=== PATIENT | male | born 1935 | race Caucasian/White ===

== ENCOUNTER 2016-04-03 07:41 | Observation (INO) ==
[2016-04-03] MEDS ORDERED: Ipratropium/Albuterol Neb 3 ML IH ONE ×2 (07:43→11:09)
[2016-04-03] MEDS ORDERED: CefTRIAXone 1,000 MG in D5% in Water (Mini-Bag+) 100 ML IVPB ONE (07:47)
[2016-04-03] MEDS ORDERED: Azithromycin 250 MG TABLET PO ONE (07:47)
--- NOTE | 2016-04-03 08:08 | Emergency Department Note ---
Disposition Clinical Impression: COPD exacerbation Disposition: Admitted As Inpatient Condition: Fair Referrals: Juan Carlos Gutiérrez MD [Primary Care Provider] - Forms: ED Satisfaction Letter Time of Disposition: 11:18 SOB HPI - General Chief Complaint: ED Shortness of Breath/Dyspnea Stated Complaint: shortness of breath and chest pain Time Seen by Provider: 04/03/16 08:05 Source: family Mode of arrival: wheelchair Limitations: no limitations Nursing Notes Reviewed: Yes Vital Signs Reviewed: Yes - History of Present Illness 80-year-old white male with a history of COPD who presents with a 2 week history of increased difficulty breathing and cough productive of yellow sputum. He denies fever. He states his chest is sore, but "it is sore all the time". He denies fever. He has chronic leg edema, he states it is no worse than usual. Pt Subjective Complaint: shortness of breath Onset (ago): week(s) (2) Context: other (History of COPD) Severity: moderate Consistency/Duration: constant Improves with: oxygen, bronchodilators Worsens with: lying flat, exertion, coughing Known history of: COPD Associated symptoms: Reports: cough, sputum production (Yellow) Treatment prior to arrival: oxygen, bronchodilator Cough present: Yes Cough Description: Involuntary, Productive Cough Frequency: Intermittent Sputum production: Yes Sputum Amount: Large Sputum Color: Yellow - Related Data Home oxygen amount: 3 liters Previous Rx's Medication Instructions Recorded Albuterol Neb [Proventil Neb] 2.5 mg IH Q2H PRN #0 inhsol 02/01/16 Albuterol Sulfate [Albuterol 2 puff IH Q4H PRN 365 Days 02/01/16 Inhaler] Budesonide/Formoterol 160/4.5 2 puff IH BIDR inhaler 02/01/16 [Symbicort 160/4.5] Bumetanide [Bumex] 1 mg PO DAILY tablet 02/01/16 Fenofibrate [Tricor] 54 mg PO QAM tablet 02/01/16 Glimepiride [Amaryl] 2 mg PO 0800 tablet 02/01/16 HYDROcodone/Acet 5/325 mg [[place] 1 tab PO BID PRN #0 tablet 02/01/16 5-325 mg] Metolazone [Zaroxolyn] 5 mg PO DAILY tablet 11/10/16 Montelukast [Singulair] 10 mg PO DAILY tablet 02/01/16 Mupirocin [Bactroban Oint] 1 appl TP BID tube 02/01/16 Patient Taking Own Medication 1 each PO DAILY each 02/01/16 Potassium Chloride 10 meq PO DAILY tab.er.prt 02/01/16 Tiotropium [Spiriva] 18 mcg IH DAILY inh 02/01/16 Amoxicillin/Clavulanate [Augmentin] 875 mg PO BIDWM #6 tablet 03/04/16 Cholecalciferol (D-3) [Vitamin D] 2,000 unit PO DAILY #60 tablet 03/04/16 Lactobacillus [Culturelle] 1 each PO BID #6 cap.sprink 03/04/16 Levofloxacin [Levaquin] 500 mg PO DAILY #3 tablet 03/04/16 PredniSONE 20 mg PO BIDWM #6 tablet 03/04/16 Allergies Allergy/AdvReac Type Severity Reaction Status Date / Time niacin Allergy See Verified 11/20/14 14:29 Comments All systems ED: reviewed and negative except as stated. Constitutional: Denies: fever, chills Eyes: Denies: eye discharge ENT ED: Denies: ear pain, throat pain Cardiovascular: Reports: chest pain (He states his chest is sore all the time. He describes it as a soreness, worse with coughing.) Respiratory: Reports: cough, dyspnea, wheezes, sputum production Gastrointestinal: Denies: abdominal pain, nausea, vomiting Genitourinary: Denies: urgency, dysuria Musculoskeletal: Reports: other (Chronic leg edema). Denies: back pain Past Medical History - Past Medical History Medical history: Reports: arthritis, cancer, CHF, COPD, diabetes, hyperlipidemia , hypertension, renal disease, other Surgical history: Reports: cataract, other Psychiatric history: Reports: anxiety, depression - Social History Smoking Status: Former smoker Smokeless Tobacco Status: No Alcohol use: Reports: none Drug use: Reports: none, other Physical Exam - General Limitations: no limitations General appearance: alert, in distress (Mildly dyspneic) - Head Head exam: atraumatic, normocephalic - Eye Eye exam: Present: PERRL, EOMI, conjunctival injection (Mild). Absent: scleral icterus - ENT ENT exam: normal oropharynx, mucous membranes moist, TM's normal bilaterally - Neck Neck exam: Present: normal inspection, full ROM, trachea midline. Absent: lymphadenopathy - Respiratory Respiratory exam: Present: respiratory distress (Mild), wheezes (Moderate, bilateral, expiratory, diffuse), prolonged expiratory phase. Absent: accessory muscle use - Cardiovascular Cardiovascular exam: Present: regular rate, tachycardia (105). Absent: systolic murmur, diastolic murmur, gallop - Abdominal Exam Abdominal exam: Present: soft, Non-Tender, normal bowel sounds, other (Obese). Absent: organomegaly, mass - Extremities Exam Extremities exam: Present: normal capillary refill, pedal edema (2+ minimally pitting edema starting below the knees, includes the ankle and feet.). Absent: calf tenderness - Neurological Exam Neurological exam: Present: alert, oriented X3. Absent: motor sensory deficit - Psychiatric Psychiatric exam: Present: normal affect, normal mood - Skin Skin exam: Present: warm, dry, intact. Absent: cyanosis, diaphoresis Course - Reevaluation(s) Reevaluation #1: Critical troponin of 0.07 called to MD. Will order 2 hour repeat. Time: 08:33 Reevaluation #2: Slightly improved. On exam he still has moderate expiratory wheezing bilaterally. An additional DuoNeb has been ordered. Time: 11:00 Vital Signs Temperature 97.7 F 04/03/16 07:42 Pulse Rate 108 04/03/16 07:42 Respiratory Rate 28 04/03/16 07:42 Blood Pressure 128/99 04/03/16 07:42 O2 Sat by Pulse Oximetry 85 L 04/03/16 07:42 Temperature 97.7 F 04/03/16 07:45 Pulse Rate 93 04/03/16 10:45 Respiratory Rate 18 04/03/16 10:45 Blood Pressure 123/68 04/03/16 10:45 O2 Sat by Pulse Oximetry 94 L 04/03/16 10:45 Oxygen Delivery Oxygen Delivery Nasal Cannula Shortness of Breath/Dyspnea - [facility] Narrative Medical decision making narrative: Clinically he has an exacerbation of his COPD. There is no evidence of pneumonia on his chest x-ray. Clinically he does not have congestive heart failure, and his BNP is not elevated. I have a low index of suspicion for pulmonary embolus. He has improved somewhat with treatment. I discussed the case with the hospitalist, Dr. Landrum. The patient be admitted. - Differential Diagnosis Likely: acute exacerbation of chronic obstructive airways disease, congestive heart failure, pneumonia, asthma with exacerbation, pneumothorax, arrhythmia - Medical Records Medical records reviewed: Yes I reviewed the patient's medical records. Old records reviewed. His last hospital discharge was on 03/02/16. - Lab Data Lab results reviewed: Yes I reviewed the patient's lab results. Result diagrams: 04/03/16 08:03 04/03/16 08:03 Lab Results 04/03/16 04/03/16 04/03/16 Range/Units 08:03 08:03 08:03 WBC 22.5 H (4.3-11.1) K/mcL RBC 3.12 L (4.19-5.50) M/mcL Hgb 9.0 L (12.9-16.9) g/dL Hct 28.5 L (37.5-50.1) % MCV 91.3 (83.0-100.0) fL MCH 28.8 (28.0-33.3) pg MCHC 31.6 (31.6-35.5) g/dL RDW 15.0 H (11.5-14.5) % Plt Count 254 (140-400) K/mcL MPV 8.8 L (9.4-12.4) fL Immature Gran % 4.5 H (0-4) % Seg Neutrophils % 79.7 % Lymphocytes % 7.7 % Monocytes % 7.4 % Eosinophils % 0.4 % Basophils % 0.3 % Neutrophils # 17.9 H (1.6-8.9) K/mcL Lymphocytes # 1.7 (0.6-4.6) K/mcL Monocytes # 1.7 H (0.0-1.3) K/mcL Eosinophils # 0.1 (0.0-0.6) K/mcL Basophils # 0.1 (0.0-0.2) K/mcL PT 12.9 H (9.4-12.1) Seconds INR 1.2 APTT 29.3 (26.0-36.0) Seconds Sodium 135 L (136-145) mEq/L Potassium 3.6 (3.5-4.5) mEq/L Chloride 80 L (98-109) mEq/L Carbon Dioxide 42 H* (19-29) mEq/L BUN 42 H (8-26) mg/dL Creatinine 1.33 H (0.72-1.25) mg/dL Est GFR ( Amer) > 60 (> 60) Est GFR (Non-Af Amer) 52 L (> 60) BUN/Creatinine Ratio 32 H (6-26) Glucose 184 H (70-99) mg/dL Calculated Osmolality 295 (280-300) Calcium 9.9 (8.6-10.8) mg/dL Troponin I (0-0.03) ng/mL B-Natriuretic Peptide (0-100) pg/mL 04/03/16 04/03/16 04/03/16 Range/Units 08:03 08:03 10:05 WBC (4.3-11.1) K/mcL RBC (4.19-5.50) M/mcL Hgb (12.9-16.9) g/dL Hct (37.5-50.1) % MCV (83.0-100.0) fL MCH (28.0-33.3) pg MCHC (31.6-35.5) g/dL RDW (11.5-14.5) % Plt Count (140-400) K/mcL MPV (9.4-12.4) fL Immature Gran % (0-4) % Seg Neutrophils % % Lymphocytes % % Monocytes % % Eosinophils % % Basophils % % Neutrophils # (1.6-8.9) K/mcL Lymphocytes # (0.6-4.6) K/mcL Monocytes # (0.0-1.3) K/mcL Eosinophils # (0.0-0.6) K/mcL Basophils # (0.0-0.2) K/mcL PT (9.4-12.1) Seconds INR APTT (26.0-36.0) Seconds Sodium (136-145) mEq/L Potassium (3.5-4.5) mEq/L Chloride (98-109) mEq/L Carbon Dioxide (19-29) mEq/L BUN (8-26) mg/dL Creatinine (0.72-1.25) mg/dL Est GFR ( Amer) (> 60) Est GFR (Non-Af Amer) (> 60) BUN/Creatinine Ratio (6-26) Glucose (70-99) mg/dL Calculated Osmolality (280-300) Calcium (8.6-10.8) mg/dL Troponin I 0.07 H* 0.07 H* (0-0.03) ng/mL B-Natriuretic Peptide 62 (0-100) pg/mL - Radiology Data Radiology results reviewed: Yes I reviewed the patient's radiology results. ITS Impressions Chest X-Ray 04/03/16 07:43 IMPRESSION: 1. Prominence of the interstitial markings bilaterally, which could be related to a chronic interstitial process or perhaps interstitial edema. 2. Bibasilar atelectasis. D/ / Willis Mullen MD / Willis Mullen MD Interpreting Provider: Willis Mullen MD - EKG Data EKG attestation: Yes I reviewed and interpreted this EKG. EKG results narrative: Sinus tachycardia, rate of 108, occasional supraventricular premature contraction, age undetermined septal infarct, nonspecific ST-T changes. This tracing is compared to a tracing dated 03/01/16, he was in atrial fibrillation on that date, ST T changes are unchanged. Rhythm strip shows sinus tachycardia with rate of 108, IL interval 197 ms, QRS 82 ms with no other ectopy as interpreted by me. Critical Care Time Critical Care Time: Yes Total Critical Care Time: 30 Attestation: Critical care time includes my initial evaluation, reevaluation, consultation with the hospitalist, review of laboratory, EKG, chest x-ray.
[2016-04-03 08:11] LABS: Basophils # 0.1 K/mcL (0.0-0.2); Basophils % 0.3 %; Eosinophils # 0.1 K/mcL (0.0-0.6); Eosinophils % 0.4 %; Hematocrit 28.5 % (37.5-50.1); Immature Granulocytes % 4.5 % (0-4); Lymphocytes # 1.7 K/mcL (0.6-4.6); Lymphocytes % 7.7 %; Mean Corpuscular HGB Conc 31.6 g/dL (31.6-35.5); Mean Corpuscular Hemoglobin 28.8 pg (28.0-33.3); Mean Corpuscular Volume 91.3 fL (83.0-100.0); Mean Platelet Volume 8.8 fL (9.4-12.4); Monocytes # 1.7 K/mcL (0.0-1.3); Monocytes % 7.4 %; Platelet Count 254 K/mcL (140-400); Red Blood Count 3.12 M/mcL (4.19-5.50); Segmented Neutrophils % 79.7 %
[2016-04-03] MEDS ORDERED: Albuterol 2.5 MG/3 ML NEBULIZER IH ONE (08:11)
[2016-04-03 08:12] LABS: Neutrophils # 17.9 K/mcL (1.6-8.9)
[2016-04-03 08:18] LABS: INR 1.2; Prothrombin Time 12.9 Seconds (9.4-12.1)
[2016-04-03 08:21] LABS: Activated Partial Thrombo Time 29.3 Seconds (26.0-36.0)
[2016-04-03 08:26] LABS: BUN/Creatinine Ratio 32 (6-26); Blood Urea Nitrogen 42 mg/dL (8-26); Calcium 9.9 mg/dL (8.6-10.8); Chloride 80 mEq/L (98-109); Glucose 184 mg/dL (70-99); Osmolality,Calculated 295 (280-300); Potassium 3.6 mEq/L (3.5-4.5); Sodium 135 mEq/L (136-145); eGFR For African Americans > 60 (> 60); eGFR For Non-African Americans 52 (> 60)
[2016-04-03 08:27] LABS: Carbon Dioxide 42 mEq/L (19-29)
--- NOTE | 2016-04-03 13:28 | Electrocardiograph Report ---
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
[2016-04-03] MEDS ORDERED: *HR* HYDROcodone/Acet 5/325 mg TABLET PO PRN (15:23)
[2016-04-03] MEDS ORDERED: Naloxone 0.4 MG/ML INJ IVP PRN (15:23)
[2016-04-03] MEDS ORDERED: Ipratropium/Albuterol Neb 3 ML IH SCH (16:00)
[2016-04-03] MEDS: Albuterol 2.5 MG/3 ML NEBULIZER IH PRN (17:26)
[2016-04-03] MEDS: Lactobacillus 1 EACH CAP.SPRINK PO SCH (21:50)
[2016-04-03] MEDS: Budesonide/Formoterol 160/4.5 MDI IH SCH (22:00)
[2016-04-03 23:05] LABS: Acinetobacter baumannii by PCR Not Detected (Not Detect); Candida albicans by PCR Not Detected (Not Detect); Candida glabrata by PCR Not Detected (Not Detect); Candida krusei by PCR Not Detected (Not Detect); Candida parapsilosis by PCR Not Detected (Not Detect); Candida tropicalis by PCR Not Detected (Not Detect); Enterococcus by PCR Not Detected (Not Detect); Escherichia coli by PCR Not Detected (Not Detect); Klebsiella oxytoca by PCR Not Detected (Not Detect); Klebsiella pneumoniae by PCR Not Detected (Not Detect); Pseudomonas aeruginosa by PCR Not Detected (Not Detect); Serratia marcescens by PCR Not Detected (Not Detect); Staphylococcus aureus by PCR Not Detected (Not Detect); Streptococcus agalactiae(B)PCR Not Detected (Not Detect); Streptococcus by PCR ***DETECTED*** (Not Detect); Streptococcus pneumoniae PCR Not Detected (Not Detect); Streptococcus pyogenes (A) PCR Not Detected (Not Detect); blaKPC Carbapenem-Resist Gene Not Detected (Not Detect); mecA Methicillin-Resist Gene Not Detected (Not Detect); vanA/B Vancomycin-Resist Genes Not Detected (Not Detect)
[2016-04-04] MEDS: Albuterol 2.5 MG/3 ML NEBULIZER IH PRN ×5 (04:41→21:22)
[2016-04-04] MEDS: *HR* Enoxaparin 40 MG/0.4 ML SYRINGE SQ SCH (06:40)
[2016-04-04] MEDS: Doxycycline 100 MG in 0.9 % Sodium Chloride Mini Bag 100 ML IVPB SCH ×2 (06:41→17:50)
[2016-04-04] MEDS ORDERED: Cholecalciferol (D-3) 1,000 UNIT TABLET PO SCH ×2 (09:00→11:37)
[2016-04-04] MEDS: *HR* Glimepiride 2 MG TABLET PO SCH (09:34)
[2016-04-04] MEDS: Lactobacillus 1 EACH CAP.SPRINK PO SCH ×2 (09:34→20:45)
[2016-04-04] MEDS: Bumetanide 1 MG TABLET PO SCH (09:34)
[2016-04-04] MEDS: Fenofibrate 54 MG TABLET PO SCH (09:35)
[2016-04-04] MEDS: Tiotropium 18 MCG inhalation IH SCH (09:51)
[2016-04-04] MEDS: Budesonide/Formoterol 160/4.5 MDI IH SCH ×2 (09:54→21:34)
--- NOTE | 2016-04-04 11:28 | Internal Med History&Physical ---
Date of Encounter: 04/04/16 Time of Encounter: 11:05 Assessment and Plan (1) COPD exacerbation Current visit: Yes Status: Acute He has been started on Rocephin and doxycycline. Lactobacillus has also been ordered. His home pulmonary regimen has been reordered. We will recheck labs in a.m. (2) Anemia Current visit: No Status: Chronic Hemoglobin has risen since last admission. Anemia testing done 03/02/2016 showed serum iron 7 and transferrin saturation 3%. We will start on ferrous sulfate with vitamin C. Qualifiers: Anemia type: unspecified type Qualified Code(s): D64.9 - Anemia, unspecified (3) CKD (chronic kidney disease) stage 3, GFR 30-59 ml/min Current visit: No Status: Chronic His creatinine has decreased to 1.3. Estimated GFR 52. Continue present regimen (4) Vitamin D deficiency Current visit: No Status: Chronic Vitamin D level was 10 on 04/03/2015. We will give vitamin D supplement Internal Medicine - H&P: HPI Chief complaint: Dyspnea Admitted From: Home Plans for Post Hospital Care: Home History of present illness: Mr. Alarcon is a 80 year old male who came to emergency complaining of increasing dyspnea over the proceeding 2 weeks. He claims he had a cough productive of green-yellow sputum. He was evaluated in emergency room and felt to have exacerbation of COPD. He was admitted to [facility] floor for ongoing care needs. He was hospitalized approximately 4 weeks ago with similar complaints. He has been hospitalized several times at [facility] in the past few years, most often with exacerbation of COPD. His respiratory history is significant for having smoked from age [age] up to 3 packs per day. He has a diagnosis of COPD/emphysema and wears oxygen at home 14/10. He had chest CT done April 2014 which showed no acute process except for severe emphysema. He states he was diagnosed with sleep apnea several years ago but could not tolerate the CPAP mask. He denies missing any doses of his home medications. Past Med Surg Social Fam HX - Past Medical History Medical history: arthritis, cancer, CHF, COPD, diabetes, hyperlipidemia, hypertension, renal disease, other Psychiatric history: anxiety, depression - Past Surgical History Surgical History: cataract, other - Social History Smoking Status: Former smoker Smokeless Tobacco Status: No Alcohol use: none Drug use: none, other - Family History Son Adopted: No Family Member Ethnicity: Non- Living Status: Still Living Hx Family Cardiac Disorders: Yes Hx Family Respiratory Disorders: No Hx Family Cancer: Yes (Mother Cancer stomach) Hx Family GI Disorders: No Father Adopted: No Living Status: Hx Family Cardiac Disorders: Yes Hx Family Respiratory Disorders: No Hx Family Cancer: Yes (Mother Cancer stomach) Hx Family GI Disorders: No Mother Living Status: Internal Medicine - H&P: Meds Albuterol Sulfate [Albuterol Inhaler] 2 puff IH Q4H PRN 365 Days 02/01/16 [Rx] Budesonide/Formoterol 160/4.5 [Symbicort 160/4.5] 2 puff IH BIDR inhaler [Rx] Bumetanide [Bumex] 1 mg PO DAILY tablet 02/01/16 [Rx] Fenofibrate [Tricor] 54 mg PO QAM tablet 02/01/16 [Rx] Glimepiride [Amaryl] 2 mg PO 0800 tablet 02/01/16 [Rx] HYDROcodone/Acet 5/325 mg [[place] 5-325 mg] 1 tab PO BID PRN #0 tablet 02/01/16 [ Rx] Metolazone [Zaroxolyn] 5 mg PO DAILY tablet 02/01/16 [Rx] Montelukast [Singulair] 10 mg PO DAILY tablet 02/01/16 [Rx] Potassium Chloride 10 meq PO DAILY tab.er.prt 02/01/16 [Rx] Tiotropium [Spiriva] 18 mcg IH DAILY inh 02/01/16 [Rx] Cholecalciferol (D-3) [Vitamin D] 2,000 unit PO DAILY #60 tablet 03/04/16 [Rx] Lactobacillus [Culturelle] 1 each PO BID #6 cap.sprink 03/04/16 [Rx] PredniSONE 20 mg PO BIDWM #6 tablet 03/04/16 [Rx] Allergies niacin Allergy (Verified 11/20/14 14:29) See Comments All Systems PM: A 10-system review of systems was performed and is negative for pertinent findings except as documented above in the HPI. Review of systems: Review of systems from his last visit February 2016 were reviewed and revised as below. Gen.: His weight January 2015 was 220 pounds. Reported weighed this admission is 92.986 kg. Cardiovascular: His cardiovascular history is significant for having hypertension. He had an echocardiogram done during an [facility] stay 04/2014 that showed LVEF of 65-70% with probable mild diastolic dysfunction. Estimated RVSP was 60 mmHg. He has a history of hypertension and heart failure but no known DVT or pulmonary embolus. He had an exercise stress test approximately 2008. He does not remember details but believes it was done at [facility] and showed no abnormality requiring further intervention. He has significant leg edema and wears Matty wraps at home daily on his lower legs. Respiratory: As per history of present illness GI: He has NAFLD and cholelithiasis without cholecystitis. He has diverticulosis. He has had no disorders documented of his liver gallbladder or exocrine pancreas. He thinks he had EGD and colonoscopy done approximately 2004 at [facility] which were both unremarkable. : He has CKD stage 3-[address] Borden. He had prostate cancer in 1998 was treated with radiation therapy and ongoing Lupron injections. His estimated GFR had risen to greater than 60 at time of discharge 11/21/2015. Neurologic: He denies large distribution strokes or seizures. He has significant hearing loss Endocrine: He was diagnosed with DM 2 approximately 2009. His hemoglobin A1c was 6.7% on 08/23/2015. He has hyperlipidemia but no known thyroid disease. Hematology/oncology: He had anemia workup done April 2014 without factor deficiency seen. He is felt to have anemia secondary to chronic disease. He has required intermittent blood transfusions to maintain satisfactory hemoglobin level. He has no other known internal malignancies other than prostate cancer. He has had leukocytosis seen on most blood test within the past year. Psychiatric: He has depression but no significant anxiety or other mental health issues Musk skeletal: He has DJD and chronic low back pain but no known gout - Constitutional Vitals: Temp Pulse Resp BP Pulse Ox 98.4 F 98 18 130/59 96 04/04/16 10:33 04/04/16 10:33 04/04/16 10:33 04/04/16 10:33 04/04/16 10:33 Exam: Gen.: He is a well-developed overweight male who appears in minimal respiratory distress at the present time. He sitting on the edge of the bed. HEENT: Head is atraumatic and normocephalic. Eyes: EOMI. There is no scleral icterus. Mouth: Mucosa is moist. Neck: Supple and nontender. There is no thyromegaly or adenopathy noted. Heart: Regular without murmurs gallops or ectopics. Lungs: No wheezes or crackles are heard. He has diminished breath sounds diffusely. Abdomen: Nontender to palpation. Exam is limited because he is in the seated position. Extremities: There is 2-3+ edema of the dorsum of the feet and lower anterior shins bilaterally. He has chronic venous stasis pigmentation changes and thin skin with chronic steroid use changes of his arms and legs. Neurologic: Mental status: He is talkative and a reliable historian. He is hard of hearing. Cranial nerves: Smile is symmetric. Forehead wrinkles bilaterally. Tongue protrudes midline. EOMI. Motor: There is no pronator drift. Cerebellar: Finger to nose is intact bilaterally. Skin: Warm and dry Internal Med - H&P Results - Labs CBC & Chem 7: 04/03/16 08:03 04/03/16 08:03
[2016-04-04] MEDS: PredniSONE 20 MG TABLET PO SCH (17:50)
[2016-04-05] MEDS: Albuterol 2.5 MG/3 ML NEBULIZER IH PRN ×3 (05:31→11:49)
[2016-04-05 05:37] LABS: Basophils % 0.2 %; Hematocrit 24.1 % (37.5-50.1); Immature Granulocytes % 6.3 % (0-4); Lymphocytes # 1.2 K/mcL (0.6-4.6); Lymphocytes % 5.6 %; Mean Corpuscular HGB Conc 33.2 g/dL (31.6-35.5); Mean Corpuscular Hemoglobin 29.4 pg (28.0-33.3); Mean Corpuscular Volume 88.6 fL (83.0-100.0); Mean Platelet Volume 9.5 fL (9.4-12.4); Monocytes # 1.4 K/mcL (0.0-1.3); Monocytes % 6.8 %; Neutrophils # 16.9 K/mcL (1.6-8.9); Nucleated Red Blood Cells 0.1 /100 WBC (0); Platelet Count 288 K/mcL (140-400); Red Blood Count 2.72 M/mcL (4.19-5.50); Red Cell Distribution Width 14.7 % (11.5-14.5); Segmented Neutrophils % 81.1 %
[2016-04-05 06:00] LABS: BUN/Creatinine Ratio 42 (6-26); Blood Urea Nitrogen 55 mg/dL (8-26); Calcium 9.5 mg/dL (8.6-10.8); Carbon Dioxide 37 mEq/L (19-29); Chloride 85 mEq/L (98-109); Glucose 141 mg/dL (70-99); Osmolality,Calculated 293 (280-300); Potassium 3.9 mEq/L (3.5-4.5); Sodium 133 mEq/L (136-145); eGFR For African Americans > 60 (> 60); eGFR For Non-African Americans 53 (> 60)
[2016-04-05] MEDS: Doxycycline 100 MG in 0.9 % Sodium Chloride Mini Bag 100 ML IVPB SCH (06:14)
[2016-04-05] MEDS: *HR* Enoxaparin 40 MG/0.4 ML SYRINGE SQ SCH (06:15)
[2016-04-05 06:36] LABS: Platelet Estimate Normal (Normal)
[2016-04-05] MEDS: Lactobacillus 1 EACH CAP.SPRINK PO SCH (08:36)
[2016-04-05] MEDS: Fenofibrate 54 MG TABLET PO SCH (08:36)
[2016-04-05] MEDS: Bumetanide 1 MG TABLET PO SCH (08:36)
[2016-04-05] MEDS: *HR* Glimepiride 2 MG TABLET PO SCH (08:36)
[2016-04-05] MEDS: PredniSONE 20 MG TABLET PO SCH (08:36)
[2016-04-05] MEDS: Budesonide/Formoterol 160/4.5 MDI IH SCH ×2 (09:12→09:17)
[2016-04-05] MEDS: Tiotropium 18 MCG inhalation IH SCH (09:12)
[2016-04-05 10:38] VITALS: BP 129/74
--- NOTE | 2016-04-05 10:44 | Discharge Summary ---
Date of Encounter: 04/05/16 Time of Encounter: 10:25 - Discharge Diagnosis (1) COPD exacerbation Priority: Primary Status: Acute (2) Anemia Priority: Secondary Status: Chronic Qualifiers: Anemia type: unspecified type Qualified Code(s): D64.9 - Anemia, unspecified (3) CKD (chronic kidney disease) stage 3, GFR 30-59 ml/min Priority: Secondary Status: Chronic (4) Vitamin D deficiency Priority: Secondary Status: Chronic - Discharge Medications Prescriptions: Cholecalciferol (D-3) [Vitamin D] 2,000 unit PO DAILY #60 tablet Doxycycline 100 mg PO BID #6 capsule Lactobacillus [Culturelle] 1 each PO BID #6 cap.sprink PredniSONE 10 mg PO BIDWM #6 tablet Home Medications: Albuterol Sulfate [Albuterol Inhaler] 2 puff IH Q4H PRN 365 Days 02/01/16 [Rx] Budesonide/Formoterol 160/4.5 [Symbicort 160/4.5] 2 puff IH BIDR inhaler [Rx] Bumetanide [Bumex] 1 mg PO DAILY tablet 02/01/16 [Rx] Fenofibrate [Tricor] 54 mg PO QAM tablet 02/01/16 [Rx] Glimepiride [Amaryl] 2 mg PO 0800 tablet 02/01/16 [Rx] HYDROcodone/Acet 5/325 mg [[place] 5-325 mg] 1 tab PO BID PRN #0 tablet 02/01/16 [ Rx] Metolazone [Zaroxolyn] 5 mg PO DAILY tablet 02/01/16 [Rx] Montelukast [Singulair] 10 mg PO DAILY tablet 02/01/16 [Rx] Potassium Chloride 10 meq PO DAILY tab.er.prt 02/01/16 [Rx] Tiotropium [Spiriva] 18 mcg IH DAILY inh 02/01/16 [Rx] Lactobacillus [Culturelle] 1 each PO BID #6 cap.sprink 03/04/16 [Rx] Cholecalciferol (D-3) [Vitamin D] 2,000 unit PO DAILY #60 tablet 04/05/16 [Rx] Doxycycline 100 mg PO BID #6 capsule 04/05/16 [Rx] Lactobacillus [Culturelle] 1 each PO BID #6 cap.sprink 04/05/16 [Rx] PredniSONE 10 mg PO BIDWM #6 tablet 04/05/16 [Rx] Allergies/Adverse Reactions: Allergies niacin Allergy (Verified 11/20/14 14:29) See Comments Date of admission: 04/03/16 14:00 Primary care physician: Juan Carlos Gutiérrez MD Consults: 04/03/16 15:41 Consult to Director Global Sales [CONS] Routine Reason for SW Consult: discharge planning - Patient Status Disposition: Home Health Service Condition: Fair Overall status at discharge: patient is progressing back to baseline - Discharge Instructions Follow Up With: Juan Carlos Gutiérrez MD [Primary Care Provider] - 1 week - Diet and Activity Activity: resume usual activities as tolerated, wear oxygen at all times Diet: advance to your usual diet Hospital course: Mr. Alarcon is a 80 year old male who came to emergency complaining of increasing dyspnea over the proceeding 2 weeks. He claims he had a cough productive of green-yellow sputum. He was evaluated in emergency room and felt to have exacerbation of COPD. He was admitted to [facility] for ongoing care needs. Initial orders were written by the emergency room physician. I saw him on April 04 and performed the history and physical. He was started on Rocephin and doxycycline. Blood cultures returned showing streptococcus. He will continue doxycycline and lactobacillus for 3 additional days after discharge. He was given Solu-Medrol on admission but I changed this to prednisone. He will continue prednisone for 3 additional days at discharge. His symptoms improved significantly and on April 05 he felt stable for discharge home. He will follow with Dr. Gutiérrez within 1 week. - Time Spent with Patient Total time spent providing and/or coordinating discharge services: - Constitutional Vitals: Temp Pulse Resp BP Pulse Ox 97.4 F L 96 18 129/74 98 04/05/16 10:34 04/05/16 10:34 04/05/16 10:34 04/05/16 10:34 04/05/16 10:34
--- NOTE | 2016-04-05 10:49 | Physician Discharge Referral ---
Home Health/Hosp Referral Info Transfer to: Home Health Attending Provider: Diallo Provider in Charge Post Discharge: PCP (Juan Carlos Gutiérrez M.D.) - Diagnosis (1) COPD exacerbation Priority: Primary Status: Acute (2) Anemia Priority: Secondary Status: Chronic (3) CKD (chronic kidney disease) stage 3, GFR 30-59 ml/min Priority: Secondary Status: Chronic (4) Vitamin D deficiency Priority: Secondary Status: Chronic - Respiratory Orders Oxygen / L per min (Oxygen at 2 L/m by nasal cannula 14/10) Smoking Cessation: Smoking cessation has been advised. For more information, call the [place] Tobacco Quit Line at 8-359-WJTP-NOW. - Diet/Nutrition Diet/Nutrition Orders: No Concentrated Sweets - Activity Activity Orders: Ambulate - Services Needed Following services are medically necessary services: Nursing, Home Health Aide, Physical Therapy, Occupational Therapy - Transfer Medications Prescriptions: Cholecalciferol (D-3) [Vitamin D] 2,000 unit PO DAILY #60 tablet Doxycycline 100 mg PO BID #6 capsule Lactobacillus [Culturelle] 1 each PO BID #6 cap.sprink PredniSONE 10 mg PO BIDWM #6 tablet Home Medications: Albuterol Sulfate [Albuterol Inhaler] 2 puff IH Q4H PRN 365 Days 02/01/16 [Rx] Budesonide/Formoterol 160/4.5 [Symbicort 160/4.5] 2 puff IH BIDR inhaler [Rx] Bumetanide [Bumex] 1 mg PO DAILY tablet 02/01/16 [Rx] Fenofibrate [Tricor] 54 mg PO QAM tablet 02/01/16 [Rx] Glimepiride [Amaryl] 2 mg PO 0800 tablet 02/01/16 [Rx] HYDROcodone/Acet 5/325 mg [Barrington 5-325 mg] 1 tab PO BID PRN #0 tablet 02/01/16 [ Rx] Metolazone [Zaroxolyn] 5 mg PO DAILY tablet 02/01/16 [Rx] Montelukast [Singulair] 10 mg PO DAILY tablet 02/01/16 [Rx] Potassium Chloride 10 meq PO DAILY tab.er.prt 02/01/16 [Rx] Tiotropium [Spiriva] 18 mcg IH DAILY inh 02/01/16 [Rx] Lactobacillus [Culturelle] 1 each PO BID #6 cap.sprink 03/04/16 [Rx] Cholecalciferol (D-3) [Vitamin D] 2,000 unit PO DAILY #60 tablet 04/05/16 [Rx] Doxycycline 100 mg PO BID #6 capsule 04/05/16 [Rx] Lactobacillus [Culturelle] 1 each PO BID #6 cap.sprink 04/05/16 [Rx] PredniSONE 10 mg PO BIDWM #6 tablet 04/05/16 [Rx] Allergies/Adverse Reactions: Allergies niacin Allergy (Verified 11/20/14 14:29) See Comments Certification: Further, I certify that my clinical findings support that this patient is homebound (i.e. absences from home require considerable and taxing effort and are for medical reasons or evangelical services or infrequently or short duration when for other reasons) because: Homebound Reason: Leaving home requires considerable and taxing effort due to condition (Severe COPD) Attestation: My signature below is to certify that this patient is under my care and that I, or nurse practitioner, or a physician's library serials assistant working with me, has a face-to -face encounter with this patient.
== END 2016-04-05 12:25 | disposition home health service (06) ==
LOC: EMEROOPIK 07:41 → INPPIK 07:41
PROVIDERS: ADMIT Internal Medicine; ATTEND Internal Medicine

== ENCOUNTER 2016-04-17 15:51 | Observation (INO) ==
[2016-04-17 16:28] LABS: Basophils % 0.3 %; Eosinophils # 0.1 K/mcL (0.0-0.6); Eosinophils % 0.9 %; Hematocrit 28.5 % (37.5-50.1); Hemoglobin 8.4 g/dL (12.9-16.9); Immature Granulocytes % 1.8 % (0-4); Lymphocytes # 1.4 K/mcL (0.6-4.6); Lymphocytes % 11.1 %; Mean Corpuscular HGB Conc 29.5 g/dL (31.6-35.5); Mean Corpuscular Hemoglobin 29.3 pg (28.0-33.3); Mean Corpuscular Volume 99.3 fL (83.0-100.0); Mean Platelet Volume 9.2 fL (9.4-12.4); Monocytes # 0.7 K/mcL (0.0-1.3); Neutrophils # 10.5 K/mcL (1.6-8.9); Platelet Count 334 K/mcL (140-400); Red Blood Count 2.87 M/mcL (4.19-5.50); Red Cell Distribution Width 15.8 % (11.5-14.5); Segmented Neutrophils % 80.9 %
[2016-04-17 16:28] LABS: ABG PH 7.38 pH Units (7.32-7.45)
[2016-04-17 16:31] LABS: ABG Base Excess 15.9 mEq/L (-2.0 to 3.0); ABG Oxygen Saturation 95 % (95-98); ABG PCO2 70 mmHg (35-45); ABG PO2 80 mmHg (85-104); ABG TCO2 43.2 mEq/L (20-26); Blood Gas FiO2 28 %; Blood Gas Liter Flow 2 L/MIN
[2016-04-17 16:32] LABS: Blood Gas Respiration Rate 20
[2016-04-17 16:52] LABS: BUN/Creatinine Ratio 29 (6-26); Blood Urea Nitrogen 30 mg/dL (8-26); Calcium 9.9 mg/dL (8.6-10.8); Carbon Dioxide 30 mEq/L (19-29); Chloride 93 mEq/L (98-109); Glucose 102 mg/dL (70-99); Osmolality,Calculated 290 (280-300); Potassium 4.7 mEq/L (3.5-4.5); Sodium 137 mEq/L (136-145); eGFR For African Americans > 60 (> 60); eGFR For Non-African Americans > 60 (> 60)
[2016-04-17 16:53] LABS: Acetaminophen < 3.0 mcg/mL (10-30); Salicylate < 5.0 mg/dL (15-30)
--- NOTE | 2016-04-17 17:56 | Emergency Department Note ---
Disposition Clinical Impression: Suicide attempt Benzodiazepine overdose Qualifiers: Encounter type: initial encounter Injury intent: intentional self-harm Qualified Code(s): T42.4X2A - Poisoning by benzodiazepines, intentional self- harm, initial encounter COPD (chronic obstructive pulmonary disease) Qualifiers: COPD type: unspecified COPD Qualified Code(s): J44.9 - Chronic obstructive pulmonary disease, unspecified Disposition: Admitted As Inpatient Condition: Fair General Adult HPI - General Chief complaint: ED Overdose Stated complaint: possible overdose of Ativan Time Seen by Provider: 04/17/16 16:01 Source: patient, family, EMS Mode of arrival: EMS Limitations: altered mental status Nursing Notes Reviewed: Yes Vital Signs Reviewed: Yes - History of Present Illness HPI Narrative: This is an 80-year-old male who has a history of COPD. According to family he was last normal at about noon. When they found him again or evaluated him again about 2:30 PM he was very drowsy. He pounded basically empty Ativan bottle and think he took about 15.5 mg Ativan. They note that he has shown drowsiness since this happened. He does have significant COPD. If those were oxygen all the time. Location the problem is the drowsiness likely related to the extra Ativan that he took Duration: His best we can tell this was onset sometime before 2:30 PM Timing: Apart history Severity: He is somewhat drowsy. As best as can be told he took about 15-16 of the abdomen. Quality: Just the drowsiness Associated signs and symptoms: Other than the drowsiness and associated due to decreased mental status he does not seem to be displaying any other problems Context: He has had some depressed attitude and according to the son has at times threatened to take things in the past but is never made any attempts. Modifying factors: Enough and tried yet Pain Scale: 0 - Related Data Home Medications Medication Instructions Recorded Confirmed Amitriptyline HCl 10 mg PO 04/17/16 Roflumilast [Daliresp] 500 mcg PO 04/17/16 Previous Rx's Medication Instructions Recorded Albuterol Sulfate [Albuterol 2 puff IH Q4H PRN 365 Days 02/01/16 Inhaler] Budesonide/Formoterol 160/4.5 2 puff IH BIDR inhaler 02/01/16 [Symbicort 160/4.5] Bumetanide [Bumex] 1 mg PO DAILY tablet 02/01/16 Glimepiride [Amaryl] 2 mg PO 0800 tablet 02/01/16 Metolazone [Zaroxolyn] 5 mg PO DAILY tablet 02/01/16 Montelukast [Singulair] 10 mg PO DAILY tablet 02/01/16 Potassium Chloride 10 meq PO DAILY tab.er.prt 02/01/16 Tiotropium [Spiriva] 18 mcg IH DAILY inh 02/01/16 Cholecalciferol (D-3) [Vitamin D] 2,000 unit PO DAILY #60 tablet 04/05/16 Lactobacillus [Culturelle] 1 each PO BID #6 cap.sprink 04/05/16 PredniSONE 10 mg PO BIDWM #6 tablet 04/05/16 Allergies Allergy/AdvReac Type Severity Reaction Status Date / Time niacin Allergy See Verified 11/20/14 14:29 Comments Constitutional: Denies: fever Eyes: Denies: eye discharge ENT ED: Denies: congestion Cardiovascular: Reports: other (Unknown as the patient is drowsy) Respiratory: Reports: wheezes (Chronic COPD) Gastrointestinal: Denies: nausea, vomiting Genitourinary: Reports: other (Unknown patients to drowsy) Musculoskeletal: Reports: other (Unknown patients to drowsy) Integumentary: Reports: other (Unknown patients to drowsy) Neurological: Reports: confusion Past Medical History - Past Medical History Source: patient, old records reviewed, obtained from family Medical history: Reports: arthritis, cancer, CHF, COPD, diabetes, hyperlipidemia , hypertension, renal disease, other Surgical history: Reports: cataract, other Psychiatric history: Reports: anxiety, depression - Social History Smoking Status: Former smoker Smokeless Tobacco Status: No Alcohol use: Reports: none Drug use: Reports: none, other Physical Exam - General Limitations: altered mental status General appearance: lethargic - Head Head exam: atraumatic, normocephalic - Eye Eye exam: Present: PERRL. Absent: conjunctival injection - ENT ENT exam: mucous membranes moist - Neck Neck exam: Present: other (No JVD is seen) - Chest Chest inspection: Present: normal inspection - Respiratory Respiratory exam: Present: other (Rhonchi heard bilaterally) - Cardiovascular Cardiovascular exam: Present: regular rate, normal rhythm, normal heart sounds. Absent: JVD - Abdominal Exam Abdominal exam: Present: soft, Non-Tender - Extremities Exam Extremities exam: Absent: pedal edema, calf tenderness - Back Exam Back exam: Absent: CVA tenderness (R), CVA tenderness (L) - Neurological Exam Neurological exam: Present: other (Patient is drowsy and speech is mumbled) - Psychiatric Psychiatric exam: Present: other (Unable to evaluate the patient is to drowsy) - Skin Skin exam: Absent: rash Course - Reevaluation(s) Reevaluation #1: The patient continues to be stable here in the emergency room. He is still drowsy. His current vital signs are pulse of 95 blood pressure 128/91 he is 99 % on 2 L respiratory rate is 18. He has not declined anything in his mental status. I did discuss patient with Dr. Landrum had about 1730 and he did agree to admit the patient for observation until the effects of the medication wear off so that he can be evaluated with respect to his suicidality Time: 18:07 Vital Signs Temperature 97.6 F 04/17/16 15:53 Pulse Rate 89 04/17/16 15:53 Respiratory Rate 15 04/17/16 15:53 Blood Pressure 124/63 04/17/16 15:53 O2 Sat by Pulse Oximetry 99 04/17/16 15:53 Temperature 97.6 F 04/17/16 15:56 Pulse Rate 91 04/17/16 17:11 Respiratory Rate 22 04/17/16 17:11 Blood Pressure 146/82 04/17/16 17:11 O2 Sat by Pulse Oximetry 100 04/17/16 17:11 Oxygen Delivery Oxygen Delivery Nasal Cannula Medical Decision Making - [facility] Narrative Medical decision making narrative: This patient has chronic COPD and is a CO2 retainer but his blood gas appears to be baseline today. He appeared to made a suicide attempt with the Ativan. He is stable at this time but will need further evaluation of the suicidality once effects of the Ativan wore off. Because of the multiple tablets taken not clear what the time to T maximum or the half life of the medication will be. - Lab Data Lab results reviewed: Yes I reviewed the patient's lab results. Result diagrams: 04/17/16 16:22 04/17/16 16:22 Lab Results 04/17/16 04/17/16 04/17/16 Range/Units 16:01 16:22 16:22 WBC 13.0 H (4.3-11.1) K/mcL RBC 2.87 L (4.19-5.50) M/mcL Hgb 8.4 L (12.9-16.9) g/dL Hct 28.5 L (37.5-50.1) % MCV 99.3 D (83.0-100.0) fL MCH 29.3 (28.0-33.3) pg MCHC 29.5 L (31.6-35.5) g/dL RDW 15.8 H (11.5-14.5) % Plt Count 334 (140-400) K/mcL MPV 9.2 L (9.4-12.4) fL Immature Gran % 1.8 (0-4) % Seg Neutrophils % 80.9 % Lymphocytes % 11.1 % Monocytes % 5.0 % Eosinophils % 0.9 % Basophils % 0.3 % Neutrophils # 10.5 H (1.6-8.9) K/mcL Lymphocytes # 1.4 (0.6-4.6) K/mcL Monocytes # 0.7 (0.0-1.3) K/mcL Eosinophils # 0.1 (0.0-0.6) K/mcL Basophils # 0.0 (0.0-0.2) K/mcL ABG pH 7.38 (7.32-7.45) pH Units ABG pCO2 70 H* (35-45) mmHg ABG pO2 80 L (85-104) mmHg ABG HCO3 41.0 H (21-27) mEQ/L ABG Total CO2 43.2 H (20-26) mEq/L ABG O2 Saturation 95 (95-98) % ABG Base Excess 15.9 H (-2.0 to 3.0) mEq/L Respiration Rate 20 Liter Flow 2 L/MIN Blood Gas Modality NC Inspired O2 28 % Sodium 137 (136-145) mEq/L Potassium 4.7 H (3.5-4.5) mEq/L Chloride 93 L (98-109) mEq/L Carbon Dioxide 30 H (19-29) mEq/L BUN 30 H (8-26) mg/dL Creatinine 1.03 (0.72-1.25) mg/dL Est GFR ( Amer) > 60 (> 60) Est GFR (Non-Af Amer) > 60 (> 60) BUN/Creatinine Ratio 29 H (6-26) Glucose 102 H (70-99) mg/dL Calculated Osmolality 290 (280-300) Calcium 9.9 (8.6-10.8) mg/dL Salicylates < 5.0 L (15-30) mg/dL Acetaminophen < 3.0 L (10-30) mcg/mL White count is 13. Hemoglobin is 8.4 which is fairly normal for this patient. Blood gas shows a pH of 7.38 suggesting that the CO2 of 70 is normal for this patient O2 is 80. O2 saturation 95% and this is on 2 L nasal cannula. Chemistry panel is essentially normal. Salicylates and acetaminophen are negative. - Radiology Data Radiology results reviewed: Yes I reviewed the patient's radiology results. Portable chest x-ray read by radiology shows the lungs to be clear. - EKG Data EKG #1 EKG attestation: Yes I reviewed and interpreted this EKG. EKG results narrative: EKG was performed at 1555 and read by me. This shows a normal sinus rhythm with a sinus arrhythmia at a rate of 92. The R wave axis is normal 1 degree. This appeared to be a normal EKG. - Core Measures AMI Core Measures Followed: No Measure Exclusions: not indicated Critical Care Time Critical Care Time: No S.B.A.R. - S.B.A.R. Transition of Care: I did discuss patient with Dr. Landrum at about 1730. He was made aware that the patient has COPD and he is well aware of this and cc patient on a regular basis when he was admitted to the hospital. This problem today is not COPD but his overdose of benzodiazepines. He appears stable. He will be admitted to be observed all the medication wears off. S.B.A.R. Repor Time: 17:30
[2016-04-17] MEDS ORDERED: Naloxone 0.4 MG/ML INJ IVP PRN (18:14)
[2016-04-17] MEDS: Budesonide/Formoterol 160/4.5 MDI IH SCH (22:43)
[2016-04-18] MEDS: *HR* Enoxaparin 40 MG/0.4 ML SYRINGE SQ SCH (06:30)
[2016-04-18] MEDS: Bumetanide 1 MG TABLET PO SCH ×2 (10:17→13:05)
[2016-04-18] MEDS: PredniSONE 10 MG TABLET PO SCH ×2 (10:17→17:13)
[2016-04-18] MEDS: Tiotropium 18 MCG inhalation IH SCH ×2 (10:17→10:44)
[2016-04-18] MEDS: *HR* Glimepiride 2 MG TABLET PO SCH (10:17)
[2016-04-18] MEDS ORDERED: Albuterol 2.5 MG/3 ML NEBULIZER ONE (10:26)
[2016-04-18] MEDS: Albuterol 2.5 MG/3 ML NEBULIZER IH PRN ×4 (10:36→22:30)
[2016-04-18] MEDS: Budesonide/Formoterol 160/4.5 MDI IH SCH ×2 (10:46→22:13)
--- NOTE | 2016-04-18 10:59 | Electrocardiograph Report ---
[facility] Test Date: 2016-04-17 Pat Name: Franklin Alarcon Department: [id number] Room: [facility] Gender: M Device Engineer: [id number] : 1935 Requested By: Carlos Gillette Order Number: [id number] Reading MD: Kodak Garrett MD Measurements Intervals [place] Rate: 92 P: 99 CT: 204 QRS: 1 QRSD: 78 T: 50 QT: 338 QTc: 387 Interpretive Statements SINUS RHYTHM WITH FIRST DEGREE AV BLOCK PACS Electronically Signed On 04-18-16 10:58:18 EST by Kodak Garrett MD
--- NOTE | 2016-04-18 11:26 | Internal Med History&Physical ---
Date of Encounter: 04/18/16 Time of Encounter: 11:00 Assessment and Plan (1) Benzodiazepine overdose Current visit: Yes Status: Acute Qualifiers: Encounter type: initial encounter Injury intent: intentional self-harm Qualified Code(s): T42.4X2A - Poisoning by benzodiazepines, intentional self- harm, initial encounter (2) COPD (chronic obstructive pulmonary disease) Current visit: Yes Status: Acute Mental status is improving. Blood gas showed no significant impairment of ventilation in emergency room. He will be started on antidepressant medication and have restricted access to benzodiazepines at home. Qualifiers: COPD type: unspecified COPD Qualified Code(s): J44.9 - Chronic obstructive pulmonary disease, unspecified (3) Anemia Current visit: No Status: Chronic Iron studies done 03/02/2016 showed iron deficiency. I will start him on ferrous sulfate with vitamin C. Qualifiers: Anemia type: unspecified type Qualified Code(s): D64.9 - Anemia, unspecified (4) DM type 2 (diabetes mellitus, type 2) Current visit: No Status: Chronic Hemoglobin A1c was 6.0% on 03/12/2016. Continue Amaryl and do Accu-Cheks with SSI. 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 Will recheck level in a.m. Internal Medicine - H&P: HPI Chief complaint: Suicide attempt by overdose Admitted From: Home Plans for Post Hospital Care: Home History of present illness: Mr. Alarcon is a 80 year old male who was brought to emergency room after it was noted he had ingested approximately 15 Ativan 0.5 mg pills. His girlfriend who supplies history reports he has more depressed in the last week. He was evaluated in emergency room and admitted to [facility] floor for ongoing care needs. He has a history of depression but is not on antidepressant medication at this time. He uses amitriptyline 10 mg at bedtime for sleep aid. His girlfriend reports he was exhibiting unusual and likely suicidal behavior using a hand gun 6-8 months ago and was stating he would "never go to a skilled nursing but would shoot himself first". All guns were removed from the house after that event. He has not attempted suicide by pill ingestion previously. He has no other mental health diagnoses other than depression. He does not follow with mental health professionals. His girlfriend reports he had 2 brothers that committed suicide by gunshot. Past Med Surg Social Fam HX - Past Medical History Medical history: arthritis, cancer, CHF, COPD, diabetes, hyperlipidemia, hypertension, renal disease, other Psychiatric history: anxiety, depression - Past Surgical History Surgical History: cataract, other - Social History Smoking Status: Former smoker Smokeless Tobacco Status: No Alcohol use: none Drug use: none, other - Family History Son Adopted: No Family Member Ethnicity: Non- Living Status: Still Living Hx Family Cardiac Disorders: Yes Hx Family Respiratory Disorders: No Hx Family Cancer: Yes (Mother Cancer stomach) Hx Family GI Disorders: No Father Adopted: No Living Status: Hx Family Cardiac Disorders: Yes Hx Family Respiratory Disorders: No Hx Family Cancer: Yes (Mother Cancer stomach) Hx Family GI Disorders: No Mother Living Status: Internal Medicine - H&P: Meds Albuterol Sulfate [Albuterol Inhaler] 2 puff IH Q4H PRN 365 Days 02/01/16 [Rx] Budesonide/Formoterol 160/4.5 [Symbicort 160/4.5] 2 puff IH BIDR inhaler [Rx] Bumetanide [Bumex] 1 mg PO DAILY tablet 02/01/16 [Rx] Glimepiride [Amaryl] 2 mg PO 0800 tablet 02/01/16 [Rx] Metolazone [Zaroxolyn] 5 mg PO DAILY tablet 02/01/16 [Rx] Montelukast [Singulair] 10 mg PO DAILY tablet 02/01/16 [Rx] Potassium Chloride 10 meq PO DAILY tab.er.prt 02/01/16 [Rx] Tiotropium [Spiriva] 18 mcg IH DAILY inh 02/01/16 [Rx] Cholecalciferol (D-3) [Vitamin D] 2,000 unit PO DAILY #60 tablet 04/05/16 [Rx] Lactobacillus [Culturelle] 1 each PO BID #6 cap.murrayink 04/05/16 [Rx] PredniSONE 10 mg PO BIDWM #6 tablet 04/05/16 [Rx] Amitriptyline HCl 10 mg PO 04/17/16 [History] Roflumilast [Daliresp] 500 mcg PO 04/17/16 [History] Allergies niacin Allergy (Verified 11/20/14 14:29) See Comments All Systems PM: A 10-system review of systems was performed and is negative for pertinent findings except as documented above in the HPI. Review of systems: Review of systems from his last visit March 2016 were reviewed and revised as below. Gen.: His weight January 2015 was 220 pounds. Reported weighed this admission is 93.123 kg. Cardiovascular: His cardiovascular history is significant for having hypertension. He had an echocardiogram done during an [facility] stay 04/2014 that showed LVEF of 65-70% with probable mild diastolic dysfunction. Estimated RVSP was 60 mmHg. He has a history of hypertension and heart failure but no known DVT or pulmonary embolus. He had an exercise stress test approximately 2008. He does not remember details but believes it was done at [facility] and showed no abnormality requiring further intervention. He has significant leg edema and wears Matty wraps at home daily on his lower legs. Respiratory: His respiratory history is significant for having smoked from age [age] up to 3 packs per day. He has a diagnosis of COPD/emphysema and wears oxygen at home 14/10. He had chest CT done April 2014 which showed no acute process except for severe emphysema. He states he was diagnosed with sleep apnea several years ago but could not tolerate the CPAP mask. He has been hospitalized many times at [facility] in the past 2 years generally with exacerbation of COPD. GI: He has NAFLD and cholelithiasis without cholecystitis. He has diverticulosis. He has had no disorders documented of his liver gallbladder or exocrine pancreas. He thinks he had EGD and colonoscopy done approximately 2004 at [facility] which were both unremarkable. : He has CKD stage 3-[address] Borden. He had prostate cancer in 1998 was treated with radiation therapy and ongoing Lupron injections. His estimated GFR had risen to greater than 60 at time of discharge 11/21/2015. Neurologic: He denies large distribution strokes or seizures. He has significant hearing loss Endocrine: He was diagnosed with DM 2 approximately 2009. His hemoglobin A1c was 6.7% on 08/23/2015. He has hyperlipidemia but no known thyroid disease. Hematology/oncology: He had anemia workup done April 2014 without factor deficiency seen. He is felt to have anemia secondary to chronic disease. He has required intermittent blood transfusions to maintain satisfactory hemoglobin level. He has no other known internal malignancies other than prostate cancer. He has had leukocytosis seen on most blood test within the past year. Psychiatric: As per history of present illness Musk skeletal: He has DJD and chronic low back pain but no known gout - Constitutional Vitals: Temp Pulse Resp BP Pulse Ox 98.9 F 109 18 120/73 97 04/18/16 10:19 04/18/16 10:19 04/18/16 10:46 04/18/16 10:19 04/18/16 10:46 Exam: Gen.: He is a well-developed obese male lying in bed who appears in no severe distress. He is lethargic but does awaken and answers a few questions. HEENT: Head is atraumatic and normocephalic. Eyes: EOMI. There is no scleral icterus. He has conjunctivitis with dried eyelash drainage of his right eye. Mouth: Mucosa is moist. Neck: Supple and nontender. There is no thyromegaly or adenopathy noted. Heart: Irregular. I cannot tell if it is regularly or irregularly irregular. Lungs: He has scattered rhonchi and prolonged expiratory phase. No inspiratory crackles are heard. Breath sounds are symmetric. Abdomen: Soft and nontender. No masses or guarding are noted. Extremities: He has significant desquamation of the skin of his feet. He has ecchymoses in various stages covering most of his arms with thin fragile skin from prolonged steroid use. He has diffuse onychomycosis of his nails. He has 1-2+ edema in the dorsum of the right foot and 1+ edema of the dorsum of the left foot. He has DJD changes of his hands. Neurologic: Mental status: He is awake and able to answer questions but is lethargic. Cranial nerves: Smile is symmetric. Forehead wrinkles bilaterally. Tongue protrudes midline. EOMI. He is hard of hearing. Motor: There is no pronator drift. Cerebellar: Finger to nose is intact bilaterally. Skin: Warm and dry Internal Med - H&P Results - Labs CBC & Chem 7: 04/17/16 16:22 04/17/16 16:22
[2016-04-18] MEDS: Clotrimazole 1% CRM 15 GM TUBE TP SCH ×2 (13:06→20:54)
[2016-04-18] MEDS: Tobramycin/Dex Opth DROPS 2.5 ML BOTTLE RIGHT EYE SCH ×2 (17:14→20:54)
[2016-04-19] MEDS: Tobramycin/Dex Opth DROPS 2.5 ML BOTTLE RIGHT EYE SCH ×2 (02:02→11:33)
[2016-04-19] MEDS: Albuterol 2.5 MG/3 ML NEBULIZER IH PRN ×3 (04:55→17:42)
[2016-04-19] MEDS: *HR* Enoxaparin 40 MG/0.4 ML SYRINGE SQ SCH (05:40)
[2016-04-19] MEDS: Ascorbic Acid 500 MG TABLET PO SCH ×2 (05:40→07:57)
[2016-04-19 07:14] LABS: BUN/Creatinine Ratio 27 (6-26); Blood Urea Nitrogen 28 mg/dL (8-26); Calcium 9.5 mg/dL (8.6-10.8); Carbon Dioxide 36 mEq/L (19-29); Chloride 92 mEq/L (98-109); Glucose 94 mg/dL (70-99); Osmolality,Calculated 295 (280-300); Potassium 3.9 mEq/L (3.5-4.5); Sodium 140 mEq/L (136-145); eGFR For African Americans > 60 (> 60); eGFR For Non-African Americans > 60 (> 60)
[2016-04-19 07:22] LABS: Basophils % 0.3 %; Eosinophils # 0.2 K/mcL (0.0-0.6); Eosinophils % 1.3 %; Hematocrit 25.2 % (37.5-50.1); Hemoglobin 7.9 g/dL (12.9-16.9); Lymphocytes # 1.9 K/mcL (0.6-4.6); Lymphocytes % 16.4 %; Mean Corpuscular HGB Conc 31.3 g/dL (31.6-35.5); Mean Platelet Volume 9.4 fL (9.4-12.4); Monocytes # 0.9 K/mcL (0.0-1.3); Monocytes % 7.3 %; Neutrophils # 8.6 K/mcL (1.6-8.9); Platelet Count 304 K/mcL (140-400); Red Blood Count 2.72 M/mcL (4.19-5.50); Red Cell Distribution Width 15.5 % (11.5-14.5); Segmented Neutrophils % 73.7 %
[2016-04-19] MEDS: Clotrimazole 1% CRM 15 GM TUBE TP SCH (07:57)
[2016-04-19] MEDS: PredniSONE 10 MG TABLET PO SCH ×2 (07:58→16:06)
[2016-04-19] MEDS: Bumetanide 1 MG TABLET PO SCH (07:58)
[2016-04-19] MEDS: *HR* Glimepiride 2 MG TABLET PO SCH (07:58)
[2016-04-19 08:39] LABS: Mean Corpuscular Volume 92.6 fL (83.0-100.0)
[2016-04-19] MEDS: Tiotropium 18 MCG inhalation IH SCH ×2 (08:50→08:51)
[2016-04-19] MEDS: Budesonide/Formoterol 160/4.5 MDI IH SCH (09:05)
[2016-04-19 15:47] VITALS: BP 103/54
--- NOTE | 2016-04-20 08:59 | Discharge Summary ---
Date of Encounter: 04/19/16 Time of Encounter: 15:45 - Discharge Diagnosis (1) Benzodiazepine overdose Priority: Primary Status: Acute Qualifiers: Encounter type: initial encounter Injury intent: intentional self-harm Qualified Code(s): T42.4X2A - Poisoning by benzodiazepines, intentional self- harm, initial encounter (2) COPD (chronic obstructive pulmonary disease) Priority: Secondary Status: Chronic Qualifiers: COPD type: unspecified COPD Qualified Code(s): J44.9 - Chronic obstructive pulmonary disease, unspecified (3) Anemia Priority: Secondary Status: Chronic Qualifiers: Anemia type: unspecified type Qualified Code(s): D64.9 - Anemia, unspecified (4) DM type 2 (diabetes mellitus, type 2) Priority: Secondary Status: Chronic Qualifiers: Diabetes mellitus complication status: with kidney complications Diabetes mellitus complication detail: with chronic kidney disease Diabetes mellitus [facility] insulin use: without [facility] use Chronic kidney disease stage: stage 2 (mild) Qualified Code(s): E11.22 - Type 2 diabetes mellitus with diabetic chronic kidney disease; N18.2 - Chronic kidney disease, stage 2 (mild) (5) Vitamin D deficiency Priority: Secondary Status: Chronic - Discharge Medications Home Medications: Albuterol Sulfate [Albuterol Inhaler] 2 puff IH Q4H PRN 365 Days 02/01/16 [Rx] Budesonide/Formoterol 160/4.5 [Symbicort 160/4.5] 2 puff IH BIDR inhaler [Rx] Bumetanide [Bumex] 1 mg PO DAILY tablet 02/01/16 [Rx] Glimepiride [Amaryl] 2 mg PO 0800 tablet 02/01/16 [Rx] Metolazone [Zaroxolyn] 5 mg PO DAILY tablet 02/01/16 [Rx] Montelukast [Singulair] 10 mg PO DAILY tablet 02/01/16 [Rx] Potassium Chloride 10 meq PO DAILY tab.er.prt 02/01/16 [Rx] Tiotropium [Spiriva] 18 mcg IH DAILY inh 02/01/16 [Rx] Cholecalciferol (D-3) [Vitamin D] 2,000 unit PO DAILY #60 tablet 04/05/16 [Rx] Lactobacillus [Culturelle] 1 each PO BID #6 cap.sprink 04/05/16 [Rx] PredniSONE 10 mg PO BIDWM #6 tablet 04/05/16 [Rx] Amitriptyline HCl 10 mg PO 04/17/16 [History] Roflumilast [Daliresp] 500 mcg PO 04/17/16 [History] Allergies/Adverse Reactions: Allergies niacin Allergy (Verified 11/20/14 14:29) See Comments Date of admission: 04/17/16 17:43 Primary care physician: Juan Carlos Gutiérrez M.D. Consults: 04/19/16 16:22 Consult to Nutrition [CONS] Routine Comment: Consulting Provider: NUTRITION Reason for Dietary Consult: MST Score Consult to [employer] [CONS] Routine Reason for SW Consult: SI - Patient Status Disposition: Transfer Short-Term Hosp Condition: Fair Functional capacity at discharge: uses cane/walker - Discharge Instructions Forms: ED Satisfaction Letter Hospital course: Mr. Alarcon is a 80 year old male who was brought to emergency room after it was noted he had ingested approximately 15 Ativan 0.5 mg pills. His girlfriend who supplies history reports he has been more depressed in the last week. He was evaluated in emergency room and admitted to [facility] floor for ongoing care needs. Initial orders were written by the emergency room physician. I saw him on April 18 and performed the history and physical. His mental status gradually improved as the benzodiazepine effect lessened. He mentioned to staff he still was entertaining depressed and suicidal thoughts. Contact was made with [facility] senior [facility] and the patient was accepted in transfer there. He was discharged the afternoon of April 19. - Time Spent with Patient Total time spent providing and/or coordinating discharge services: - Constitutional Vitals: Temp Pulse Resp BP Pulse Ox 98.4 F 97 26 103/54 92 L 04/19/16 15:45 04/19/16 15:45 04/19/16 17:44 04/19/16 15:45 04/19/16 17:44
== END 2016-04-19 19:17 | disposition short-term general hospital (02) ==
LOC: EMEROOPIK 15:51 → INPPIK 15:51
PROVIDERS: ADMIT Internal Medicine; ATTEND Internal Medicine

== ENCOUNTER 2016-06-12 13:58 | Observation (INO) ==
[2016-06-12] MEDS ORDERED: Albuterol 2.5 MG/3 ML NEBULIZER IH ONE (14:51)
[2016-06-12] MEDS ORDERED: Ipratropium/Albuterol Neb 3 ML IH ONE (14:51)
--- NOTE | 2016-06-12 14:55 | Emergency Department Note ---
Disposition Clinical Impression: COPD exacerbation Disposition: Home, Self-Care Condition: Good Referrals: Juan Carlos Gutiérrez MD [Primary Care Provider] - Forms: ED Satisfaction Letter Time of Disposition: 18:10 SOB HPI - General Chief Complaint: ED Shortness of Breath/Dyspnea Stated Complaint: short of breath Time Seen by Provider: 06/12/16 14:45 Source: patient, family Mode of arrival: wheelchair Limitations: no limitations, physical limitation Nursing Notes Reviewed: Yes Vital Signs Reviewed: Yes - History of Present Illness 80-year-old white male with a four-day history of increased difficulty breathing , increased wheezing, increased cough, and chest discomfort. The chest discomfort is constant, just soreness, worse with coughing and deep breathing. No arm or neck pain. He is chronically short of breath, more so than usual. He wears 4 L of oxygen. He has a history of COPD. He has a history of recurrent anemia requiring blood transfusions. He denies fever. His cough is productive yellow sputum. Pt Subjective Complaint: shortness of breath, cough Onset (ago): day(s) Context: recent illness (4) Severity: moderate Consistency/Duration: constant Improves with: oxygen, rest Worsens with: movement, coughing Known history of: COPD, other (Anemia) Associated symptoms: Reports: chest pain, sputum production. Denies: fever Treatment prior to arrival: oxygen, bronchodilator Cough Description: Involuntary Cough Frequency: Intermittent Sputum production: Yes Sputum Amount: Moderate Sputum Color: Yellow - Related Data Home oxygen amount: 4 liters Home Medications Medication Instructions Recorded Confirmed Amitriptyline HCl 10 mg PO HS 04/17/16 06/12/16 Roflumilast [Daliresp] 500 mcg PO QAM 04/17/16 06/12/16 Previous Rx's Medication Instructions Recorded Albuterol Sulfate [Albuterol 2 puff IH Q4H PRN 365 Days 02/01/16 Inhaler] Budesonide/Formoterol 160/4.5 2 puff IH BIDR inhaler 02/01/16 [Symbicort 160/4.5] Bumetanide [Bumex] 1 mg PO DAILY tablet 02/01/16 Glimepiride [Amaryl] 2 mg PO 0800 tablet 02/01/16 Metolazone [Zaroxolyn] 5 mg PO DAILY tablet 02/01/16 Montelukast [Singulair] 10 mg PO DAILY tablet 02/01/16 Potassium Chloride 10 meq PO DAILY tab.er.prt 02/01/16 Tiotropium [Spiriva] 18 mcg IH DAILY inh 02/01/16 Cholecalciferol (D-3) [Vitamin D] 2,000 unit PO DAILY #60 tablet 04/05/16 Lactobacillus [Culturelle] 1 each PO BID #6 cap.sprink 04/05/16 PredniSONE 10 mg PO BIDWM #6 tablet 04/05/16 Allergies Allergy/AdvReac Type Severity Reaction Status Date / Time niacin Allergy See Verified 06/12/16 13:59 Comments All systems ED: reviewed and negative except as stated. Constitutional: Denies: fever, chills Eyes: Denies: eye discharge ENT ED: Denies: ear pain, throat pain Cardiovascular: Reports: chest pain. Denies: palpitations Respiratory: Reports: cough, dyspnea, wheezes Gastrointestinal: Denies: abdominal pain, nausea, vomiting Musculoskeletal: Denies: back pain Neurological: Reports: weakness. Denies: headache, numbness, paresthesias Past Medical History - Past Medical History Medical history: Reports: arthritis, cancer, CHF, COPD, diabetes, hyperlipidemia , hypertension, renal disease, other Surgical history: Reports: cataract, other Psychiatric history: Reports: anxiety, depression - Social History Smoking Status: Former smoker Smokeless Tobacco Status: No Alcohol use: Reports: none Drug use: Reports: none, other Physical Exam - General Limitations: no limitations, physical limitation General appearance: alert, in no apparent distress - Head Head exam: atraumatic, normocephalic - Eye Eye exam: Present: PERRL, EOMI - ENT ENT exam: normal oropharynx, mucous membranes moist - Neck Neck exam: Present: normal inspection, full ROM. Absent: trachea midline, lymphadenopathy, thyromegaly - Chest Chest inspection: Present: normal inspection, symmetric chest wall rise - Respiratory Respiratory exam: Present: respiratory distress (Mildly dyspneic), wheezes, prolonged expiratory phase (Moderate bilateral expiratory). Absent: accessory muscle use - Cardiovascular Cardiovascular exam: Present: regular rate, normal rhythm, normal heart sounds - Abdominal Exam Abdominal exam: Present: soft, Non-Tender, other (Obese). Absent: organomegaly , mass - Extremities Exam Extremities exam: Present: normal capillary refill, pedal edema, other (2+ nonpitting edema starting below the knees including the ankles and feet.) - Neurological Exam Neurological exam: Present: alert, oriented X3. Absent: motor sensory deficit - Psychiatric Psychiatric exam: Present: normal affect, normal mood - Skin Skin exam: Present: warm, dry, intact. Absent: cyanosis, diaphoresis Course - Reevaluation(s) Reevaluation #1: Slightly improved. Discussed with Dr. Landrum. He will admit to an observation bed. Time: 18:06 Vital Signs Temperature 98.2 F 06/12/16 14:08 Pulse Rate 114 06/12/16 14:08 Respiratory Rate 25 06/12/16 14:08 Blood Pressure 146/96 06/12/16 14:08 O2 Sat by Pulse Oximetry 99 06/12/16 14:08 Temperature 98.2 F 06/12/16 14:10 Pulse Rate 90 06/12/16 17:05 Respiratory Rate 24 06/12/16 17:05 Blood Pressure 126/66 06/12/16 17:05 O2 Sat by Pulse Oximetry 96 06/12/16 17:05 Oxygen Delivery Oxygen Delivery Nasal Cannula Shortness of Breath/Dyspnea - MDM Narrative Medical decision making narrative: Differential includes but is not limited to COPD exacerbation, pneumonia, congestive heart failure, bronchitis with bronchospasm, pulmonary embolus, pleural effusion Patient has COPD exacerbation. No evidence of congestive heart failure. He does have some atelectasis, cannot rule out pneumonia, and he is coughing up some sputum. I am going to go and cover him with Levaquin. He will continue the Solu-Medrol and the nebulizers. I discussed the case with the hospitalist, Dr. Landrum. He will admit. - Lab Data Lab results reviewed: Yes I reviewed the patient's lab results. Result diagrams: 06/12/16 15:05 06/12/16 15:05 Lab Results 06/12/16 06/12/16 06/12/16 Range/Units 15:05 15:05 15:05 WBC 11.9 H (4.3-11.1) K/mcL RBC 2.75 L (4.19-5.50) M/mcL Hgb 8.0 L (12.9-16.9) g/dL Hct 27.1 L (37.5-50.1) % MCV 98.5 (83.0-100.0) fL MCH 29.1 (28.0-33.3) pg MCHC 29.5 L (31.6-35.5) g/dL RDW 14.7 H (11.5-14.5) % Plt Count 291 (140-400) K/mcL MPV 9.0 L (9.4-12.4) fL Immature Gran % 1.6 (0-4) % Seg Neutrophils % 84.1 % Lymphocytes % 7.1 % Monocytes % 6.1 % Eosinophils % 0.8 % Basophils % 0.3 % Neutrophils # 10.0 H (1.6-8.9) K/mcL Lymphocytes # 0.8 (0.6-4.6) K/mcL Monocytes # 0.7 (0.0-1.3) K/mcL Eosinophils # 0.1 (0.0-0.6) K/mcL Basophils # 0.0 (0.0-0.2) K/mcL Nucleated RBCs/100 WBC 0.2 H (0) /100 WBC PT 11.7 (9.4-12.1) Seconds INR 1.1 Sodium 144 (136-145) mEq/L Potassium 4.4 (3.5-4.5) mEq/L Chloride 91 L (98-109) mEq/L Carbon Dioxide 41 H* (19-29) mEq/L BUN 40 H (8-26) mg/dL Creatinine 1.22 (0.72-1.25) mg/dL Est GFR ( Amer) > 60 (> 60) Est GFR (Non-Af Amer) 57 L (> 60) BUN/Creatinine Ratio 33 H (6-26) Glucose 154 H (70-99) mg/dL Calculated Osmolality 311 H (280-300) Calcium 9.9 (8.6-10.8) mg/dL Total Bilirubin 0.2 (0.2-1.2) mg/dL AST 12 (5-34) Units/L ALT 13 (0-55) Units/L Alkaline Phosphatase 38 (38-126) Units/L Troponin I (0-0.03) ng/mL B-Natriuretic Peptide (0-100) pg/mL Serum Total Protein 6.5 (6.0-8.3) g/dL Albumin 3.3 L (3.5-5.0) g/dL Globulin 3.2 (2.4-3.5) g/dL Albumin/Globulin Ratio 1.0 L (1.1-2.2) Blood Type Antibody Screen 06/12/16 06/12/16 06/12/16 Range/Units 15:05 15:05 15:05 WBC (4.3-11.1) K/mcL RBC (4.19-5.50) M/mcL Hgb (12.9-16.9) g/dL Hct (37.5-50.1) % MCV (83.0-100.0) fL MCH (28.0-33.3) pg MCHC (31.6-35.5) g/dL RDW (11.5-14.5) % Plt Count (140-400) K/mcL MPV (9.4-12.4) fL Immature Gran % (0-4) % Seg Neutrophils % % Lymphocytes % % Monocytes % % Eosinophils % % Basophils % % Neutrophils # (1.6-8.9) K/mcL Lymphocytes # (0.6-4.6) K/mcL Monocytes # (0.0-1.3) K/mcL Eosinophils # (0.0-0.6) K/mcL Basophils # (0.0-0.2) K/mcL Nucleated RBCs/100 WBC (0) /100 WBC PT (9.4-12.1) Seconds INR Sodium (136-145) mEq/L Potassium (3.5-4.5) mEq/L Chloride (98-109) mEq/L Carbon Dioxide (19-29) mEq/L BUN (8-26) mg/dL Creatinine (0.72-1.25) mg/dL Est GFR ( Amer) (> 60) Est GFR (Non-Af Amer) (> 60) BUN/Creatinine Ratio (6-26) Glucose (70-99) mg/dL Calculated Osmolality (280-300) Calcium (8.6-10.8) mg/dL Total Bilirubin (0.2-1.2) mg/dL AST (5-34) Units/L ALT (0-55) Units/L Alkaline Phosphatase (38-126) Units/L Troponin I 0.04 H* (0-0.03) ng/mL B-Natriuretic Peptide 50 (0-100) pg/mL Serum Total Protein (6.0-8.3) g/dL Albumin (3.5-5.0) g/dL Globulin (2.4-3.5) g/dL Albumin/Globulin Ratio (1.1-2.2) Blood Type A POSITIVE Antibody Screen NEGATIVE 06/12/16 Range/Units 17:09 WBC (4.3-11.1) K/mcL RBC (4.19-5.50) M/mcL Hgb (12.9-16.9) g/dL Hct (37.5-50.1) % MCV (83.0-100.0) fL MCH (28.0-33.3) pg MCHC (31.6-35.5) g/dL RDW (11.5-14.5) % Plt Count (140-400) K/mcL MPV (9.4-12.4) fL Immature Gran % (0-4) % Seg Neutrophils % % Lymphocytes % % Monocytes % % Eosinophils % % Basophils % % Neutrophils # (1.6-8.9) K/mcL Lymphocytes # (0.6-4.6) K/mcL Monocytes # (0.0-1.3) K/mcL Eosinophils # (0.0-0.6) K/mcL Basophils # (0.0-0.2) K/mcL Nucleated RBCs/100 WBC (0) /100 WBC PT (9.4-12.1) Seconds INR Sodium (136-145) mEq/L Potassium (3.5-4.5) mEq/L Chloride (98-109) mEq/L Carbon Dioxide (19-29) mEq/L BUN (8-26) mg/dL Creatinine (0.72-1.25) mg/dL Est GFR ( Amer) (> 60) Est GFR (Non-Af Amer) (> 60) BUN/Creatinine Ratio (6-26) Glucose (70-99) mg/dL Calculated Osmolality (280-300) Calcium (8.6-10.8) mg/dL Total Bilirubin (0.2-1.2) mg/dL AST (5-34) Units/L ALT (0-55) Units/L Alkaline Phosphatase (38-126) Units/L Troponin I 0.03 (0-0.03) ng/mL B-Natriuretic Peptide (0-100) pg/mL Serum Total Protein (6.0-8.3) g/dL Albumin (3.5-5.0) g/dL Globulin (2.4-3.5) g/dL Albumin/Globulin Ratio (1.1-2.2) Blood Type Antibody Screen - Radiology Data Radiology results reviewed: Yes I reviewed the patient's radiology results. ITS Impressions Chest X-Ray 06/12/16 14:51 IMPRESSION: Bibasilar atelectasis versus pneumonia. D/ / Josse Bridges MD / Jsose Bridges MD Interpreting Provider: Josse Bridges MD - EKG Data EKG attestation: Yes I reviewed and interpreted this EKG. EKG results narrative: On his rhythm with first-degree AV block rate of 91, premature supraventricular contraction, nonspecific ST-T changes, low voltage. Rhythm Shows sinus rhythm with rate of 91, MT interval 222 ms, QRS 60 ms with no other ectopy as interpreted by me. This is compared to a tracing dated 04/17/16, significant change.
[2016-06-12 15:20] LABS: Basophils % 0.3 %; Eosinophils # 0.1 K/mcL (0.0-0.6); Eosinophils % 0.8 %; Hematocrit 27.1 % (37.5-50.1); Immature Granulocytes % 1.6 % (0-4); Lymphocytes # 0.8 K/mcL (0.6-4.6); Lymphocytes % 7.1 %; Mean Corpuscular HGB Conc 29.5 g/dL (31.6-35.5); Mean Corpuscular Hemoglobin 29.1 pg (28.0-33.3); Mean Corpuscular Volume 98.5 fL (83.0-100.0); Monocytes # 0.7 K/mcL (0.0-1.3); Monocytes % 6.1 %; Nucleated Red Blood Cells 0.2 /100 WBC (0); Platelet Count 291 K/mcL (140-400); Red Blood Count 2.75 M/mcL (4.19-5.50); Red Cell Distribution Width 14.7 % (11.5-14.5); Segmented Neutrophils % 84.1 %
[2016-06-12 15:24] LABS: INR 1.1; Prothrombin Time 11.7 Seconds (9.4-12.1)
[2016-06-12 15:34] LABS: Alanine Aminotransferase 13 Units/L (0-55); Albumin 3.3 g/dL (3.5-5.0); Alkaline Phosphatase 38 Units/L (38-126); Aspartate Amino Transferase 12 Units/L (5-34); BUN/Creatinine Ratio 33 (6-26); Bilirubin,Total 0.2 mg/dL (0.2-1.2); Blood Urea Nitrogen 40 mg/dL (8-26); Calcium 9.9 mg/dL (8.6-10.8); Chloride 91 mEq/L (98-109); Globulin 3.2 g/dL (2.4-3.5); Glucose 154 mg/dL (70-99); Osmolality,Calculated 311 (280-300); Potassium 4.4 mEq/L (3.5-4.5); Sodium 144 mEq/L (136-145); Total Protein 6.5 g/dL (6.0-8.3); eGFR For African Americans > 60 (> 60); eGFR For Non-African Americans 57 (> 60)
[2016-06-12 15:38] LABS: Carbon Dioxide 41 mEq/L (19-29)
[2016-06-12] MEDS ORDERED: Levofloxacin 500 MG/100 ML 500 MG/100 ML BAG IVPB ONE ×2 (18:15→19:08)
[2016-06-12] MEDS ORDERED: SODIUM CHLORIDE 0.9% IVPB SCH (19:08)
[2016-06-12] MEDS ORDERED: Naloxone 0.4 MG/ML INJ IVP PRN (19:08)
[2016-06-12] MEDS ORDERED: METHYLPREDNISOLONE IVPB SCH (19:08)
[2016-06-12] MEDS ORDERED: NON-FORMULARY MEDICATION 1 EACH EACH (Roflumilast [Daliresp] 500 MCG) PO SCH (19:30)
[2016-06-12] MEDS: Lactobacillus 1 EACH CAP.SPRINK PO SCH (20:10)
[2016-06-12] MEDS: Ipratropium/Albuterol Neb 3 ML IH SCH ×2 (20:40→20:44)
[2016-06-12] MEDS ORDERED: Budesonide/Formoterol 160/4.5 MDI IH SCH (22:00)
[2016-06-13] MEDS: Ipratropium/Albuterol Neb 3 ML IH SCH ×7 (00:01→23:55)
[2016-06-13] MEDS ORDERED: *HR* Enoxaparin 40 MG/0.4 ML SYRINGE SQ SCH (06:00)
[2016-06-13] MEDS: *HR* Enoxaparin 40 MG/0.4 ML SYRINGE SQ SCH (06:01)
[2016-06-13] MEDS ORDERED: PredniSONE 10 MG TABLET PO SCH (08:00)
[2016-06-13] MEDS: Lactobacillus 1 EACH CAP.SPRINK PO SCH ×2 (08:30→19:46)
[2016-06-13] MEDS: *HR* Glimepiride 2 MG TABLET PO SCH (08:30)
[2016-06-13] MEDS: Cholecalciferol (D-3) 1,000 UNIT TABLET PO SCH (08:31)
[2016-06-13] MEDS ORDERED: Tiotropium 18 MCG inhalation IH SCH (09:00)
[2016-06-13] MEDS ORDERED: Bumetanide 1 MG TABLET PO SCH (09:00)
--- NOTE | 2016-06-13 12:14 | Internal Med History&Physical ---
Date of Encounter: 06/13/16 Time of Encounter: 11:50 Assessment and Plan (1) Acute exacerbation of chronic obstructive airways disease Current visit: No Status: Acute He has been started on Levaquin and Solu-Medrol. His home pulmonary regimen will generally be continued with further workup done as needed (2) Edema Current visit: No Status: Chronic Continue Bumex and compression wrap Qualifiers: Edema type: localized Qualified Code(s): R60.0 - Localized edema (3) DM type 2 (diabetes mellitus, type 2) Current visit: No Status: Chronic Continue glimepiride and do Accu-Cheks with SSI. Qualifiers: Diabetes mellitus complication status: with kidney complications Diabetes mellitus complication detail: with chronic kidney disease Diabetes mellitus salvage determiner insulin use: without group home use Chronic kidney disease stage: stage 2 (mild) Qualified Code(s): E11.22 - Type 2 diabetes mellitus with diabetic chronic kidney disease; N18.2 - Chronic kidney disease, stage 2 (mild) Internal Medicine - H&P: HPI Chief complaint: Dyspnea Admitted From: Home Plans for Post Hospital Care: Home History of present illness: Mr. Alarcon is a 80 year old male who came to emergency complaining of increasing dyspnea over the proceeding week. He claims he had a slight cough productive of yellow sputum earlier today. He was evaluated in emergency room and felt to have exacerbation of COPD. He was admitted to [facility] floor for ongoing care needs. He has been hospitalized many times at [facility] in the past few years, most often with exacerbation of COPD. His respiratory history is significant for having smoked from age [age] up to 3 packs per day. He has a diagnosis of COPD/ emphysema and wears oxygen at home 14/10. He had chest CT done April 2014 which showed no acute process except for severe emphysema. He states he was diagnosed with sleep apnea several years ago but could not tolerate the CPAP mask. He denies missing any doses of his home medications. Past Med Surg Social Fam HX - Past Medical History Medical history: arthritis, cancer, CHF, COPD, diabetes, hyperlipidemia, hypertension, renal disease Psychiatric history: anxiety, depression, prior suicide attempt - Past Surgical History Surgical History: cataract - Social History Smoking Status: Current some day smoker Smokeless Tobacco Status: No Alcohol use: none Drug use: none, other - Family History Son Adopted: No Family Member Ethnicity: Non- Living Status: Still Living Hx Family Cardiac Disorders: Yes Hx Family Respiratory Disorders: No Hx Family Cancer: Yes (Mother Cancer stomach) Hx Family GI Disorders: No Father Adopted: No Living Status: Hx Family Cardiac Disorders: Yes Hx Family Respiratory Disorders: No Hx Family Cancer: Yes (Mother Cancer stomach) Hx Family GI Disorders: No Mother Living Status: Internal Medicine - H&P: Meds Albuterol Sulfate [Albuterol Inhaler] 2 puff IH Q4H PRN 365 Days 02/01/16 [Rx] Bumetanide [Bumex] 1 mg PO DAILY tablet 02/01/16 [Rx] Glimepiride [Amaryl] 2 mg PO 0800 tablet 02/01/16 [Rx] Metolazone [Zaroxolyn] 5 mg PO DAILY tablet 02/01/16 [Rx] Montelukast [Singulair] 10 mg PO DAILY tablet 02/01/16 [Rx] Potassium Chloride 10 meq PO DAILY tab.er.prt 02/01/16 [Rx] Tiotropium [Spiriva] 18 mcg IH DAILY inh 02/01/16 [Rx] Cholecalciferol (D-3) [Vitamin D] 2,000 unit PO DAILY #60 tablet 04/05/16 [Rx] Lactobacillus [Culturelle] 1 each PO BID #6 cap.sprink 04/05/16 [Rx] PredniSONE 10 mg PO BIDWM #6 tablet 04/05/16 [Rx] Amitriptyline HCl 10 mg PO HS 04/17/16 [History] Roflumilast [Daliresp] 500 mcg PO QAM 04/17/16 [History] Allergies niacin Allergy (Verified 06/12/16 13:59) See Comments All Systems PM: A 10-system review of systems was performed and is negative for pertinent findings except as documented above in the HPI. Review of systems: Review of systems from his last visit March 2016 were reviewed and revised as below. Gen.: His weight January 2015 was 220 pounds. Reported weighed this admission is 83.915 kg which is questionable accuracy since admission weight 2 months ago was 92.986 kg. Cardiovascular: His cardiovascular history is significant for having hypertension. He had an echocardiogram done during an [facility] stay 04/2014 that showed LVEF of 65-70% with probable mild diastolic dysfunction. Estimated RVSP was 60 mmHg. He has a history of hypertension and heart failure but no known DVT or pulmonary embolus. He had an exercise stress test approximately 2008. He does not remember details but believes it was done at [facility] and showed no abnormality requiring further intervention. He has significant leg edema and wears Matty wraps at home daily on his lower legs. Respiratory: As per history of present illness GI: He has NAFLD and cholelithiasis without cholecystitis. He has diverticulosis. He has had no disorders documented of his liver gallbladder or exocrine pancreas. He thinks he had EGD and colonoscopy done approximately 2004 at [facility] which were both unremarkable. : He has CKD stage 3-[address] Borden. He had prostate cancer in 1998 was treated with radiation therapy and ongoing Lupron injections. His estimated GFR had risen to greater than 60 at time of discharge 11/21/2015. Neurologic: He denies large distribution strokes or seizures. He has significant hearing loss Endocrine: He was diagnosed with DM 2 approximately 2009. His hemoglobin A1c was 6.0% on 03/12/2016. He has hyperlipidemia but no known thyroid disease. Hematology/oncology: He had anemia workup done February 2016 of possible iron deficiency seen. 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 He has required intermittent blood transfusions to maintain satisfactory hemoglobin level. He has no other known internal malignancies other than prostate cancer. He has had leukocytosis seen on most blood test within the past year. Psychiatric: He has depression but no significant anxiety or other mental health issues. He was hospitalized last at [facility] 2 months ago after a benzodiazepine overdose. He was transferred to [facility] inpatient senior behavioral health service. [place] skeletal: He has DJD and chronic low back pain but no known gout - Constitutional Vitals: Temp Pulse Resp BP Pulse Ox 98.4 F 84 16 118/64 100 06/13/16 10:59 06/13/16 10:59 06/13/16 10:59 06/13/16 10:59 06/13/16 10:59 Exam: General: He is a well-developed well-nourished male sitting on the side of bed who appears dyspneic at rest HEENT: Head is atraumatic and normocephalic. Eyes: EOMI. There is no scleral icterus. Mouth: Mucosa is moist. Neck: Supple and nontender. There is no thyromegaly or adenopathy noted. Heart: Regular without murmurs gallops or ectopics. Lungs: No wheezes or crackles are heard. He has diminished breath sounds diffusely. Abdomen: Soft and nontender. No masses or guarding are noted. Extremities: There is no cyanosis or clubbing noted. He has 2-3+ edema of the dorsum of feet and lower legs bilaterally. Dorsalis pedis and posttibial pulses are not palpable due to the edema. He has erythema of his lower legs and feet bilaterally. He has chronic ecchymoses with skin changes on his arms bilaterally consistent with chronic steroid use Neurologic: Mental status: He is talkative and hard of hearing but seems to be a reliable historian. Cranial nerves: Smile is symmetric. Forehead wrinkles bilaterally. Tongue protrudes midline. EOMI. Motor: There is no pronator drift. Cerebellar: Finger to nose is intact bilaterally. Skin: Warm and dry Internal Med - H&P Results - Labs CBC & Chem 7: 06/12/16 15:05 06/12/16 15:05
[2016-06-13] MEDS ORDERED: Dextrose Gel 15 GM PO PRN ×2 (12:27)
[2016-06-13] MEDS ORDERED: *HR* Dextrose 50 % in Water (Syg) 50 ML SYRINGE IVP PRN (12:27)
[2016-06-13] MEDS: Budesonide/Formoterol 160/4.5 MDI IH SCH ×2 (12:55→20:41)
[2016-06-13] MEDS: PredniSONE 10 MG TABLET PO SCH (16:55)
[2016-06-13] MEDS: Insulin LISPRO 300 UNITS/3 ML VIAL SQ SCH ×2 (16:56→19:47)
--- NOTE | 2016-06-13 17:23 | Electrocardiograph Report ---
[address] [address] Test Date: 2016-06-12 Pat Name: Franklin Alarcon Department: [id number] Room: [facility] Gender: M [employer] Supervisor: [id number] : 1935 Requested By: Josse Zimmerman Order Number: [id number] Reading MD: Kodak Garrett MD Measurements Intervals [place] Rate: 91 P: 62 NH: 222 QRS: -3 QRSD: 60 T: 47 QT: 325 QTc: 374 Interpretive Statements SINUS RHYTHM WITH FIRST DEGREE AV BLOCK WITH OCCASIONAL SUPRAVENTRICULAR PREMATURE COMPLEXES LOW QRS VOLTAGE IN PRECORDIAL LEADS Electronically Signed On 06-13-2016 17:21:14 EDT by Kodak Garrett MD
[2016-06-13] MEDS ORDERED: Levofloxacin 500 MG/100 ML 500 MG/100 ML BAG IVPB SCH (19:08)
[2016-06-14] MEDS: Ipratropium/Albuterol Neb 3 ML IH SCH ×2 (04:24→08:53)
[2016-06-14 05:45] LABS: Basophils % 0.1 %; Eosinophils % 0.1 %; Hemoglobin 6.5 g/dL (12.9-16.9); Immature Granulocytes % 1.6 % (0-4); Lymphocytes # 1.1 K/mcL (0.6-4.6); Lymphocytes % 8.7 %; Mean Corpuscular HGB Conc 29.5 g/dL (31.6-35.5); Mean Corpuscular Hemoglobin 28.6 pg (28.0-33.3); Mean Corpuscular Volume 96.9 fL (83.0-100.0); Mean Platelet Volume 9.6 fL (9.4-12.4); Monocytes # 1.3 K/mcL (0.0-1.3); Monocytes % 10.2 %; Neutrophils # 9.9 K/mcL (1.6-8.9); Nucleated Red Blood Cells 0.2 /100 WBC (0); Platelet Count 296 K/mcL (140-400); Red Blood Count 2.27 M/mcL (4.19-5.50); Red Cell Distribution Width 14.5 % (11.5-14.5); Segmented Neutrophils % 79.3 %
[2016-06-14] MEDS: *HR* Enoxaparin 40 MG/0.4 ML SYRINGE SQ SCH (06:01)
[2016-06-14 06:42] LABS: Calcium 9.1 mg/dL (8.6-10.8); Potassium 4.5 mEq/L (3.5-4.5)
[2016-06-14] MEDS: Insulin LISPRO 300 UNITS/3 ML VIAL SQ SCH ×4 (07:45→22:09)
[2016-06-14] MEDS ORDERED: 0.9 % Sodium Chloride 250 ML ONE (08:18)
[2016-06-14] MEDS: Tiotropium 18 MCG inhalation IH SCH (09:00)
[2016-06-14] MEDS: *HR* Glimepiride 2 MG TABLET PO SCH (09:33)
[2016-06-14] MEDS: PredniSONE 10 MG TABLET PO SCH ×2 (09:40→16:54)
[2016-06-14] MEDS: Bumetanide 1 MG TABLET PO SCH (09:40)
[2016-06-14] MEDS: Lactobacillus 1 EACH CAP.SPRINK PO SCH ×2 (09:41→22:09)
[2016-06-14] MEDS: Cholecalciferol (D-3) 1,000 UNIT TABLET PO SCH (09:41)
--- NOTE | 2016-06-14 11:49 | Internal Med Progress Note ---
Date of Encounter: 06/14/16 Time of Encounter: 11:40 - Assessment and plan (1) Acute exacerbation of chronic obstructive airways disease Current Visit: No Status: Acute Assessment and plan: June 14. Continue present regimen (2) Edema Current Visit: No Status: Chronic Assessment and plan: June 14. Continue present regimen Qualifiers: Edema type: localized Qualified Code(s): R60.0 - Localized edema (3) DM type 2 (diabetes mellitus, type 2) Current Visit: No Status: Chronic Assessment and plan: June 14. Blood sugars are improved. Continue present regimen Qualifiers: Diabetes mellitus complication status: with kidney complications Diabetes mellitus complication detail: with chronic kidney disease Diabetes mellitus care home insulin use: without extermination inspector use Chronic kidney disease stage: stage 2 (mild) Qualified Code(s): E11.22 - Type 2 diabetes mellitus with diabetic chronic kidney disease; N18.2 - Chronic kidney disease, stage 2 (mild) (4) Anemia Current Visit: No Status: Chronic Assessment and plan: June 14. Acute on chronic. He is being transfused 1 unit of RBCs presently. Will recheck CBC in a.m. Qualifiers: Anemia type: unspecified type Qualified Code(s): D64.9 - Anemia, unspecified - Subjective Interval history: June 14. He has no new complaints and feels better overall. - Constitutional Vitals: Temp Pulse Resp BP Pulse Ox 98.5 F 88 26 131/78 100 06/14/16 10:48 06/14/16 10:48 06/14/16 10:48 06/14/16 10:48 06/14/16 10:48 Exam: He is sitting on the side of bed resting comfortably. His lungs show diminished breath sounds with mild expiratory wheezes more on the right than the left in posterior lung no. His legs are wrapped with elastic wrap and showed decreased edema. Reviewed his medications and lab results. Internal Medicine: Result - Labs CBC & Chem 7: 06/14/16 04:30 06/14/16 04:30 Labs: Short CBC 06/14/16 Range/Units 04:30 WBC 12.5 H (4.3-11.1) K/mcL Hgb 6.5 L D (12.9-16.9) g/dL Hct 22.0 L (37.5-50.1) % Plt Count 296 (140-400) K/mcL Neutrophils # 9.9 H (1.6-8.9) K/mcL BMP 06/14/16 04:30 Sodium 142 Potassium 4.5 Chloride 95 L Carbon Dioxide 38 H BUN 60 H D Creatinine 1.41 H Glucose 79 Calcium 9.1 - ABG Interpretation ABG results: PT/INR, D-dimer PT 11.7 Seconds (9.4-12.1) 06/12/16 15:05 Consult Discharge Plan - Plan Referrals: Juan Carlos Gutiérrez MD [Primary Care Provider] - 1 week
[2016-06-14] MEDS ORDERED: Nitroglycerin 0.4 MG TAB.SUBL SL PRN (14:36)
[2016-06-14] MEDS ORDERED: *HR* Morphine 2 MG/ML SYRINGE IVP ONE (14:36)
[2016-06-14] MEDS: Budesonide/Formoterol 160/4.5 MDI IH SCH ×2 (14:40→20:36)
[2016-06-14] MEDS ORDERED: Levofloxacin 500 MG/100 ML 500 MG/100 ML BAG IVPB SCH (19:00)
[2016-06-15 05:38] LABS: Basophils % 0.1 %; Eosinophils # 0.1 K/mcL (0.0-0.6); Eosinophils % 0.6 %; Hematocrit 27.5 % (37.5-50.1); Hemoglobin 8.2 g/dL (12.9-16.9); Immature Granulocytes % 1.9 % (0-4); Lymphocytes # 1.3 K/mcL (0.6-4.6); Lymphocytes % 12.6 %; Mean Corpuscular HGB Conc 29.8 g/dL (31.6-35.5); Mean Corpuscular Hemoglobin 28.5 pg (28.0-33.3); Mean Corpuscular Volume 95.5 fL (83.0-100.0); Mean Platelet Volume 9.7 fL (9.4-12.4); Monocytes % 10.2 %; Neutrophils # 7.5 K/mcL (1.6-8.9); Nucleated Red Blood Cells 0.2 /100 WBC (0); Platelet Count 305 K/mcL (140-400); Red Blood Count 2.88 M/mcL (4.19-5.50); Red Cell Distribution Width 14.6 % (11.5-14.5); Segmented Neutrophils % 74.6 %
[2016-06-15 05:51] LABS: BUN/Creatinine Ratio 47 (6-26); Blood Urea Nitrogen 60 mg/dL (8-26); Calcium 9.7 mg/dL (8.6-10.8); Chloride 92 mEq/L (98-109); Glucose 89 mg/dL (70-99); Osmolality,Calculated 308 (280-300); Potassium 4.7 mEq/L (3.5-4.5); Sodium 141 mEq/L (136-145); eGFR For African Americans > 60 (> 60); eGFR For Non-African Americans 54 (> 60)
[2016-06-15 06:02] LABS: Carbon Dioxide 40 mEq/L (19-29)
[2016-06-15] MEDS: Insulin LISPRO 300 UNITS/3 ML VIAL SQ SCH ×4 (07:51→19:51)
[2016-06-15] MEDS: Bumetanide 1 MG TABLET PO SCH (08:59)
[2016-06-15] MEDS: Cholecalciferol (D-3) 1,000 UNIT TABLET PO SCH (09:00)
[2016-06-15] MEDS: Lactobacillus 1 EACH CAP.SPRINK PO SCH ×2 (09:00→19:51)
[2016-06-15] MEDS: *HR* Glimepiride 2 MG TABLET PO SCH ×2 (09:00→09:04)
[2016-06-15] MEDS: PredniSONE 10 MG TABLET PO SCH ×2 (09:00→17:08)
[2016-06-15] MEDS: Tiotropium 18 MCG inhalation IH SCH (10:21)
[2016-06-15] MEDS: Albuterol 2.5 MG/3 ML NEBULIZER IH PRN ×3 (10:21→21:14)
--- NOTE | 2016-06-15 16:13 | Internal Med Progress Note ---
Date of Encounter: 06/15/16 Time of Encounter: 16:00 - Assessment and plan (1) Acute exacerbation of chronic obstructive airways disease Current Visit: No Status: Acute Assessment and plan: June 14. Continue present regimen June 15. We will add Robitussin DM (2) Edema Current Visit: No Status: Chronic Assessment and plan: June 14. Continue present regimen June 15. Continue Bumex 1.5 mg daily Qualifiers: Edema type: localized Qualified Code(s): R60.0 - Localized edema (3) DM type 2 (diabetes mellitus, type 2) Current Visit: No Status: Chronic Assessment and plan: June 14. Blood sugars are improved. Continue present regimen June 15. Blood sugars are acceptable. Continue present regimen Qualifiers: Diabetes mellitus complication status: with kidney complications Diabetes mellitus complication detail: with chronic kidney disease Diabetes mellitus oil heaterman insulin use: without oil heaterman use Chronic kidney disease stage: stage 2 (mild) Qualified Code(s): E11.22 - Type 2 diabetes mellitus with diabetic chronic kidney disease; N18.2 - Chronic kidney disease, stage 2 (mild) (4) Anemia Current Visit: No Status: Chronic Assessment and plan: June 14. Acute on chronic. He is being transfused 1 unit of RBCs presently. Will recheck CBC in a.m. June 15. Hemoglobin has risen to 8.2 posttransfusion. Qualifiers: Anemia type: unspecified type Qualified Code(s): D64.9 - Anemia, unspecified - Subjective Interval history: June 14. He has no new complaints and feels better overall. June 15. He complains of dyspnea - Constitutional Vitals: Temp Pulse Resp BP Pulse Ox 97.9 F 76 16 137/68 99 06/15/16 14:48 06/15/16 14:48 06/15/16 14:48 06/15/16 14:48 06/15/16 14:48 Exam: He is sitting on the side of the bed in minimal respiratory distress. He has slightly prolonged expiratory phase and wheezing posteriorly more on the right than the left. Extremities show elastic wrap in place on his lower legs and feet. Edema is not significantly changed. I reviewed his medications and lab results. Internal Medicine: Result - Labs CBC & Chem 7: 06/15/16 04:38 06/15/16 04:38 Labs: Short CBC 06/15/16 Range/Units 04:38 WBC 10.1 (4.3-11.1) K/mcL Hgb 8.2 L D (12.9-16.9) g/dL Hct 27.5 L (37.5-50.1) % Plt Count 305 (140-400) K/mcL Neutrophils # 7.5 (1.6-8.9) K/mcL BMP 06/15/16 04:38 Sodium 141 Potassium 4.7 H Chloride 92 L Carbon Dioxide 40 H* BUN 60 H Creatinine 1.29 H Glucose 89 Calcium 9.7 - ABG Interpretation ABG results: PT/INR, D-dimer PT 11.7 Seconds (9.4-12.1) 06/12/16 15:05 Consult Discharge Plan - Plan Referrals: Juan Carlos Gutiérrez MD [Primary Care Provider] - 1 week
[2016-06-15] MEDS ORDERED: Levofloxacin 250 MG/50 ML 250 MG/50 ML BAG IVPB SCH (19:00)
[2016-06-15] MEDS: Budesonide/Formoterol 160/4.5 MDI IH SCH (21:17)
[2016-06-16] MEDS: Albuterol 2.5 MG/3 ML NEBULIZER IH PRN ×2 (00:56→07:20)
[2016-06-16] MEDS: Budesonide/Formoterol 160/4.5 MDI IH SCH (07:21)
[2016-06-16] MEDS: *HR* Glimepiride 2 MG TABLET PO SCH (08:04)
[2016-06-16] MEDS: Lactobacillus 1 EACH CAP.SPRINK PO SCH (08:04)
[2016-06-16] MEDS: Cholecalciferol (D-3) 1,000 UNIT TABLET PO SCH (08:04)
[2016-06-16] MEDS: PredniSONE 10 MG TABLET PO SCH (08:05)
[2016-06-16] MEDS: Bumetanide 1 MG TABLET PO SCH (08:05)
[2016-06-16] MEDS: Insulin LISPRO 300 UNITS/3 ML VIAL SQ SCH (08:10)
[2016-06-16 08:32] VITALS: BP 151/73
--- NOTE | 2016-06-16 09:48 | Discharge Summary ---
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 Priority: Primary Status: Acute (2) Edema Priority: Secondary Status: Chronic Qualifiers: Edema type: localized Qualified Code(s): R60.0 - Localized edema (3) DM type 2 (diabetes mellitus, type 2) Priority: Secondary Status: Chronic Qualifiers: Diabetes mellitus complication status: with kidney complications Diabetes mellitus complication detail: with chronic kidney disease Diabetes mellitus adjunct faculty for medical terminology insulin use: without adjunct faculty for medical terminology use Chronic kidney disease stage: stage 2 (mild) Qualified Code(s): E11.22 - Type 2 diabetes mellitus with diabetic chronic kidney disease; N18.2 - Chronic kidney disease, stage 2 (mild) (4) Anemia Priority: Secondary Status: Chronic Qualifiers: Anemia type: unspecified type Qualified Code(s): D64.9 - Anemia, unspecified - Discharge Medications Prescriptions: Lactobacillus [Culturelle] 1 each PO BID #6 cap.sprink Levofloxacin [Levaquin] 500 mg PO DAILY #3 tablet Home Medications: Albuterol Sulfate [Albuterol Inhaler] 2 puff IH Q4H PRN 365 Days 02/01/16 [Rx] Bumetanide [Bumex] 1 mg PO DAILY tablet 02/01/16 [Rx] Glimepiride [Amaryl] 2 mg PO 0800 tablet 02/01/16 [Rx] Metolazone [Zaroxolyn] 5 mg PO DAILY tablet 02/01/16 [Rx] Montelukast [Singulair] 10 mg PO DAILY tablet 02/01/16 [Rx] Potassium Chloride 10 meq PO DAILY tab.er.prt 02/01/16 [Rx] Tiotropium [Spiriva] 18 mcg IH DAILY inh 02/01/16 [Rx] Cholecalciferol (D-3) [Vitamin D] 2,000 unit PO DAILY #60 tablet 04/05/16 [Rx] PredniSONE 10 mg PO BIDWM #6 tablet 04/05/16 [Rx] Amitriptyline HCl 10 mg PO HS 04/17/16 [History] Roflumilast [Daliresp] 500 mcg PO QAM 04/17/16 [History] Lactobacillus [Culturelle] 1 each PO BID #6 cap.sprink 06/16/16 [Rx] Levofloxacin [Levaquin] 500 mg PO DAILY #3 tablet 06/16/16 [Rx] Allergies/Adverse Reactions: Allergies niacin Allergy (Verified 06/12/16 13:59) See Comments Date of admission: 06/12/16 18:35 Primary care physician: Juan Carlos Gutiérrez MD Consults: 06/12/16 21:43 Consult to Contract Administrator [CONS] Routine Reason for SW Consult: D/C planning - coordination of care - Patient Status Disposition: Home, Self-Care Condition: Good Overall status at discharge: patient is progressing back to baseline - Discharge Instructions Follow Up With: Juan Carlos Gutiérrez MD [Primary Care Provider] - 1 week - Diet and Activity Activity: resume usual activities as tolerated, wear oxygen at all times Diet: diabetic diet Hospital course: Mr. Alarcon is a 80 year old male who came to emergency complaining of increasing dyspnea over the proceeding week. He claims he had a slight cough productive of yellow sputum earlier today. He was evaluated in emergency room and felt to have exacerbation of COPD. He was admitted to [facility] for ongoing care needs. Initial orders were written by the emergency room physician. I saw him on June 13 and performed a history and physical. He was started on IV Levaquin and Solu-Medrol. He had gradual improvement in his dyspnea over the course of hospital stay. When I saw him on June 16 he felt significantly improved and stable for discharge home which I felt was reasonable. He will follow with his PCP Dr. Gutiérrez within 1 week. He will continue with Levaquin and probiotic for 3 additional days at discharge along with his home pulmonary regimen as before. Bumex was increased to 1.5 mg [place] during his hospital stay and elastic wraps for continued on his lower legs. He had good diuresis. He will return to his home dose of Bumex at discharge. - Time Spent with Patient Total time spent providing and/or coordinating discharge services: - Constitutional Vitals: Temp Pulse Resp BP Pulse Ox 98.4 F 92 20 151/73 97 06/16/16 07:06 06/16/16 07:06 06/16/16 07:20 06/16/16 07:06 06/16/16 07:20
[2016-06-16] MEDS: Tiotropium 18 MCG inhalation IH SCH (10:45)
== END 2016-06-16 11:00 | disposition home or self-care (01) ==
LOC: EMEROOPIK 13:58 → INPPIK 13:58
PROVIDERS: ADMIT Internal Medicine; ATTEND Internal Medicine

== ENCOUNTER 2016-06-19 18:04 | Inpatient (IN) ==
--- NOTE | 2016-06-19 18:29 | Emergency Department Note ---
Disposition Clinical Impression: Acute exacerbation of chronic obstructive airways disease CHF (congestive heart failure) Qualifiers: Congestive heart failure type: unspecified congestive heart failure type Congestive heart failure chronicity: chronic Qualified Code(s): I50.9 - Heart failure, unspecified Disposition: Admitted As Inpatient Condition: Fair Referrals: NO,PCP [Primary Care Provider] - Forms: ED Satisfaction Letter SOB HPI - General Chief Complaint: ED Shortness of Breath/Dyspnea Stated Complaint: BONNIE Time Seen by Provider: 06/19/16 18:17 Source: patient, family Limitations: physical limitation Nursing Notes Reviewed: Yes Vital Signs Reviewed: Yes - History of Present Illness Patient presents to the ED complaining of worsening shortness of breath since being discharged from the hospital on the . He was hospitalized from - with exacerbation of COPD and CHF. He was treated with Levaquin, and increased dose of Bumex and Solu-Medrol. States he took his last antibiotic today but is still feeling bad. He reports chest congestion and tightness. No rhinorrhea or sore throat. No cough. He reports nausea but no vomiting. He has chronic constipation. Last bowel movement was yesterday. No urinary symptoms. States he has chronic lower extremity edema that is slightly worse than usual. States he did feel like he was ready to be discharged when he left. He is on 4 L of oxygen at home for over 15 years. - Related Data Home Medications Medication Instructions Recorded Confirmed Amitriptyline HCl 10 mg PO HS 04/17/16 06/12/16 Roflumilast [Daliresp] 500 mcg PO QAM 04/17/16 06/12/16 Previous Rx's Medication Instructions Recorded Albuterol Sulfate [Albuterol 2 puff IH Q4H PRN 365 Days 02/01/16 Inhaler] Bumetanide [Bumex] 1 mg PO DAILY tablet 02/01/16 Glimepiride [Amaryl] 2 mg PO 0800 tablet 02/01/16 Metolazone [Zaroxolyn] 5 mg PO DAILY tablet 02/01/16 Montelukast [Singulair] 10 mg PO DAILY tablet 02/01/16 Potassium Chloride 10 meq PO DAILY tab.er.prt 02/01/16 Tiotropium [Spiriva] 18 mcg IH DAILY inh 02/01/16 Cholecalciferol (D-3) [Vitamin D] 2,000 unit PO DAILY #60 tablet 04/05/16 PredniSONE 10 mg PO BIDWM #6 tablet 04/05/16 Lactobacillus [Culturelle] 1 each PO BID #6 cap.sprink 06/16/16 Levofloxacin [Levaquin] 500 mg PO DAILY #3 tablet 06/16/16 Allergies Allergy/AdvReac Type Severity Reaction Status Date / Time niacin Allergy See Verified 06/12/16 13:59 Comments Constitutional: Denies: fever, chills, weakness, weight change Eyes: Denies: eye pain, eye discharge, vision change ENT ED: Denies: ear pain, throat pain, dental pain, hearing loss, epistaxis, congestion, dysphagia Cardiovascular: Reports: edema. Denies: chest pain, palpitations, dyspnea on exertion, syncope Respiratory: Reports: dyspnea. Denies: cough, wheezes, hemoptysis, stridor Gastrointestinal: Reports: nausea. Denies: abdominal pain, vomiting, diarrhea, constipation, hematemesis, melena, hematochezia Genitourinary: Denies: urgency, dysuria, frequency, hematuria Musculoskeletal: Denies: back pain, neck pain, arthralgia, myalgia Integumentary: Denies: rash, abrasion, lesions Neurological: Denies: headache, weakness, numbness, paresthesias, confusion, abnormal gait, vertigo Psychiatric: Denies: anxiety, depression, suicidal thoughts, homicidal thoughts , auditory hallucinations, visual hallucinations Endocrine: Denies: fatigue Hematological/Lymphatic: Denies: easy bleeding, easy bruising Allergic/Immunologic: Denies: facial swelling, urticaria Past Medical History - Past Medical History Medical history: Reports: arthritis, cancer, CHF, COPD, diabetes, hyperlipidemia , hypertension, renal disease Surgical history: Reports: cataract Psychiatric history: Reports: anxiety, depression, prior suicide attempt - Social History Smoking Status: Current some day smoker Smokeless Tobacco Status: No Alcohol use: Reports: none Drug use: Reports: none, other Physical Exam - General Limitations: physical limitation General appearance: alert, in no apparent distress - Head Head exam: atraumatic, normocephalic, normal inspection - Eye Eye exam: Present: normal appearance, PERRL, EOMI - ENT ENT exam: normal exam, normal oropharynx, mucous membranes moist - Neck Neck exam: Present: normal inspection, full ROM, trachea midline - Chest Chest inspection: Present: normal inspection, symmetric chest wall rise - Respiratory Respiratory exam: Absent: respiratory distress - Expanded Respiratory Exam Location: wheezes: Left, Right, Upper, Lower (scattered), decreased breath sounds: Lower, Upper, Right, Left - Cardiovascular Cardiovascular exam: Present: regular rate, normal rhythm, normal heart sounds - Abdominal Exam Abdominal exam: Present: soft, Non-Tender. Absent: tenderness, distention, guarding, rebound, rigidity - Extremities Exam Extremities exam: Present: normal inspection, full ROM, pedal edema (1-2+ pitting bilaterally to knees). Absent: tenderness Course Course Narrative: Patient presents to the ED with worsening shortness of breath and edema since being discharged 3 days ago. He has some scattered wheezing and diminished breath sounds. Oxygen saturation is normal 4 L around 90. Family states he has been dipping down into the 70s with any level of exertion. He has significant pitting lower extremity edema. He was given a nebulizer treatment while labs and imaging were obtained. Chest x-ray shows no pneumonia. Laboratory studies show chronic anemia. His CO2 is slightly higher than usual on his ABG although he is a known chronic retainer. Troponin is slightly elevated and I feel this represents a strain as his EKG does not show any ischemic changes. I do feel like he would benefit from admission which he agrees with. Will contact the hospitalist on-call. - Reevaluation(s) Reevaluation #1: I have spoken to the hospitalist adjunct physical education instructor, Dr. Landrum, who has accepted the patient. Vital Signs Temperature 98.2 F 06/19/16 18:08 Pulse Rate 91 06/19/16 18:08 Respiratory Rate 28 06/19/16 18:08 Blood Pressure 161/84 06/19/16 18:08 O2 Sat by Pulse Oximetry 91 L 06/19/16 18:08 Temperature 98.2 F 06/19/16 18:08 Pulse Rate 94 06/19/16 19:23 Respiratory Rate 22 06/19/16 19:23 Blood Pressure 140/66 06/19/16 19:23 O2 Sat by Pulse Oximetry 92 L 06/19/16 19:23 Oxygen Delivery Oxygen Delivery Nasal Cannula Shortness of Breath/Dyspnea - Differential Diagnosis Likely: acute exacerbation of chronic obstructive airways disease, congestive heart failure, pneumonia - Medical Records Medical records reviewed: Yes I reviewed the patient's medical records. - Lab Data Lab results reviewed: Yes I reviewed the patient's lab results. Result diagrams: 06/19/16 18:39 06/19/16 18:39 Lab Results 06/19/16 06/19/16 06/19/16 Range/Units 18:39 18:39 18:39 WBC 8.0 (4.3-11.1) K/mcL RBC 2.62 L (4.19-5.50) M/mcL Hgb 7.6 L (12.9-16.9) g/dL Hct 24.9 L (37.5-50.1) % MCV 95.0 (83.0-100.0) fL MCH 29.0 (28.0-33.3) pg MCHC 30.5 L (31.6-35.5) g/dL RDW 14.2 (11.5-14.5) % Plt Count 220 (140-400) K/mcL MPV 9.2 L (9.4-12.4) fL Immature Gran % 1.4 (0-4) % Seg Neutrophils % 87.2 % Lymphocytes % 4.4 % Monocytes % 6.9 % Eosinophils % 0.0 % Basophils % 0.1 % Neutrophils # 7.0 (1.6-8.9) K/mcL Lymphocytes # 0.4 L (0.6-4.6) K/mcL Monocytes # 0.6 (0.0-1.3) K/mcL Eosinophils # 0.0 (0.0-0.6) K/mcL Basophils # 0.0 (0.0-0.2) K/mcL Nucleated RBCs/100 WBC 0.4 H (0) /100 WBC PT 13.1 H (9.4-12.1) Seconds INR 1.2 APTT 29.7 (26.0-36.0) Seconds ABG pH (7.32-7.45) pH Units ABG pCO2 (35-45) mmHg ABG pO2 (85-104) mmHg ABG HCO3 (21-27) mEQ/L ABG Total CO2 (20-26) mEq/L ABG O2 Saturation (95-98) % ABG Base Excess (-2.0 to 3.0) mEq/L Liter Flow L/MIN Blood Gas Modality Inspired O2 % Sodium 136 (136-145) mEq/L Potassium 4.4 (3.5-4.5) mEq/L Chloride 81 L (98-109) mEq/L Carbon Dioxide 40 H* (19-29) mEq/L BUN 59 H (8-26) mg/dL Creatinine 1.58 H (0.72-1.25) mg/dL Est GFR ( Amer) 51 L (> 60) Est GFR (Non-Af Amer) 42 L (> 60) BUN/Creatinine Ratio 37 H (6-26) Glucose 149 H (70-99) mg/dL Calculated Osmolality 301 H (280-300) Calcium 8.6 (8.6-10.8) mg/dL Troponin I (0-0.03) ng/mL B-Natriuretic Peptide (0-100) pg/mL Blood Type 06/19/16 06/19/16 06/19/16 Range/Units 18:39 18:39 18:39 WBC (4.3-11.1) K/mcL RBC (4.19-5.50) M/mcL Hgb (12.9-16.9) g/dL Hct (37.5-50.1) % MCV (83.0-100.0) fL MCH (28.0-33.3) pg MCHC (31.6-35.5) g/dL RDW (11.5-14.5) % Plt Count (140-400) K/mcL MPV (9.4-12.4) fL Immature Gran % (0-4) % Seg Neutrophils % % Lymphocytes % % Monocytes % % Eosinophils % % Basophils % % Neutrophils # (1.6-8.9) K/mcL Lymphocytes # (0.6-4.6) K/mcL Monocytes # (0.0-1.3) K/mcL Eosinophils # (0.0-0.6) K/mcL Basophils # (0.0-0.2) K/mcL Nucleated RBCs/100 WBC (0) /100 WBC PT (9.4-12.1) Seconds INR APTT (26.0-36.0) Seconds ABG pH (7.32-7.45) pH Units ABG pCO2 (35-45) mmHg ABG pO2 (85-104) mmHg ABG HCO3 (21-27) mEQ/L ABG Total CO2 (20-26) mEq/L ABG O2 Saturation (95-98) % ABG Base Excess (-2.0 to 3.0) mEq/L Liter Flow L/MIN Blood Gas Modality Inspired O2 % Sodium (136-145) mEq/L Potassium (3.5-4.5) mEq/L Chloride (98-109) mEq/L Carbon Dioxide (19-29) mEq/L BUN (8-26) mg/dL Creatinine (0.72-1.25) mg/dL Est GFR ( Amer) (> 60) Est GFR (Non-Af Amer) (> 60) BUN/Creatinine Ratio (6-26) Glucose (70-99) mg/dL Calculated Osmolality (280-300) Calcium (8.6-10.8) mg/dL Troponin I 0.05 H* (0-0.03) ng/mL B-Natriuretic Peptide 49 (0-100) pg/mL Blood Type A POSITIVE 06/19/16 Range/Units 18:49 WBC (4.3-11.1) K/mcL RBC (4.19-5.50) M/mcL Hgb (12.9-16.9) g/dL Hct (37.5-50.1) % MCV (83.0-100.0) fL MCH (28.0-33.3) pg MCHC (31.6-35.5) g/dL RDW (11.5-14.5) % Plt Count (140-400) K/mcL MPV (9.4-12.4) fL Immature Gran % (0-4) % Seg Neutrophils % % Lymphocytes % % Monocytes % % Eosinophils % % Basophils % % Neutrophils # (1.6-8.9) K/mcL Lymphocytes # (0.6-4.6) K/mcL Monocytes # (0.0-1.3) K/mcL Eosinophils # (0.0-0.6) K/mcL Basophils # (0.0-0.2) K/mcL Nucleated RBCs/100 WBC (0) /100 WBC PT (9.4-12.1) Seconds INR APTT (26.0-36.0) Seconds ABG pH 7.38 (7.32-7.45) pH Units ABG pCO2 75 H* (35-45) mmHg ABG pO2 53 L (85-104) mmHg ABG HCO3 44.8 H (21-27) mEQ/L ABG Total CO2 47.1 H (20-26) mEq/L ABG O2 Saturation 84 L (95-98) % ABG Base Excess 19.7 H (-2.0 to 3.0) mEq/L Liter Flow 4 L/MIN Blood Gas Modality [place] Inspired O2 36 % Sodium (136-145) mEq/L Potassium (3.5-4.5) mEq/L Chloride (98-109) mEq/L Carbon Dioxide (19-29) mEq/L BUN (8-26) mg/dL Creatinine (0.72-1.25) mg/dL Est GFR ( Amer) (> 60) Est GFR (Non-Af Amer) (> 60) BUN/Creatinine Ratio (6-26) Glucose (70-99) mg/dL Calculated Osmolality (280-300) Calcium (8.6-10.8) mg/dL Troponin I (0-0.03) ng/mL B-Natriuretic Peptide (0-100) pg/mL Blood Type - Radiology Data Radiology results reviewed: Yes I reviewed the patient's radiology results. - EKG Data EKG attestation: Yes I reviewed and interpreted this EKG. EKG results narrative: ITS Impressions Chest X-Ray 06/19/16 18:34 IMPRESSION: Mild bibasilar opacities, which may represent atelectasis or small infiltrates. Emphysematous change. D/ / 06/19/2016 18:54:17 Darryn Elizabeth MD / adelita Interpreting Provider: Darryn Elizabeth MD EKG shows normal: Reports: sinus rhythm Rate: Reports: normal Rhythm: Reports: NSR [place]/QRS: Reports: normal Heart block present: Reports: 1st Degree When compared to previous EKG there are: no significant changes Interpretation: Reports: no acute changes, unchanged when compared to prior tracing (date) (06/12/16)
[2016-06-19] MEDS ORDERED: Ipratropium/Albuterol Neb 3 ML IH ONE ×2 (18:34)
[2016-06-19 18:52] LABS: Basophils % 0.1 %; Hematocrit 24.9 % (37.5-50.1); Hemoglobin 7.6 g/dL (12.9-16.9); Immature Granulocytes % 1.4 % (0-4); Lymphocytes # 0.4 K/mcL (0.6-4.6); Lymphocytes % 4.4 %; Mean Corpuscular HGB Conc 30.5 g/dL (31.6-35.5); Mean Platelet Volume 9.2 fL (9.4-12.4); Monocytes # 0.6 K/mcL (0.0-1.3); Monocytes % 6.9 %; Nucleated Red Blood Cells 0.4 /100 WBC (0); Platelet Count 220 K/mcL (140-400); Red Blood Count 2.62 M/mcL (4.19-5.50); Red Cell Distribution Width 14.2 % (11.5-14.5); Segmented Neutrophils % 87.2 %
[2016-06-19 18:58] LABS: INR 1.2; Prothrombin Time 13.1 Seconds (9.4-12.1)
[2016-06-19 19:01] LABS: Activated Partial Thrombo Time 29.7 Seconds (26.0-36.0)
[2016-06-19 19:05] LABS: ABG PH 7.38 pH Units (7.32-7.45)
[2016-06-19 19:06] LABS: ABG HCO3 44.8 mEQ/L (21-27); ABG PCO2 75 mmHg (35-45); ABG PO2 53 mmHg (85-104)
[2016-06-19 19:07] LABS: ABG Base Excess 19.7 mEq/L (-2.0 to 3.0); ABG Oxygen Saturation 84 % (95-98); ABG TCO2 47.1 mEq/L (20-26); Blood Gas FiO2 36 %; Blood Gas Liter Flow 4 L/MIN
[2016-06-19 19:07] LABS: Calcium 8.6 mg/dL (8.6-10.8); Potassium 4.4 mEq/L (3.5-4.5)
[2016-06-19] MEDS: Ondansetron 4 MG/2 ML VIAL IVP STA (20:08)
[2016-06-19] MEDS ORDERED: Naloxone 0.4 MG/ML INJ IVP PRN ×2 (20:15→20:50)
[2016-06-19] MEDS: Albuterol 2.5 MG/3 ML NEBULIZER IH PRN (22:57)
[2016-06-20] MEDS: Albuterol 2.5 MG/3 ML NEBULIZER IH PRN ×5 (02:08→20:41)
[2016-06-20] MEDS: *HR* Glimepiride 2 MG TABLET PO SCH (06:06)
[2016-06-20] MEDS: (Roflumilast [Daliresp] 500 MCG) PO SCH (08:20)
[2016-06-20] MEDS: Cholecalciferol (D-3) 1,000 UNIT TABLET PO SCH (08:48)
[2016-06-20] MEDS ORDERED: Bumetanide 1 MG TABLET PO SCH (09:00)
[2016-06-20] MEDS: Tiotropium 18 MCG inhalation IH SCH (09:12)
--- NOTE | 2016-06-20 11:07 | Internal Med History&Physical ---
Date of Encounter: 06/20/16 Time of Encounter: 10:45 Assessment and Plan (1) Acute exacerbation of chronic obstructive airways disease Current visit: Yes Status: Acute He was given Solu-Medrol in emergency room. WBC was normal in emergency room although left shift was noted. We will recheck labs in a.m. (2) Anemia Current visit: No Status: Chronic We will recheck labs in a.m. Anemia testing done 03/02/2016 showed iron deficiency. Qualifiers: Anemia type: unspecified type Qualified Code(s): D64.9 - Anemia, unspecified (3) CHF (congestive heart failure) Current visit: Yes Status: Chronic Continue Bumex. Will add isosorbide. Qualifiers: Congestive heart failure type: diastolic Congestive heart failure chronicity: chronic Qualified Code(s): I50.32 - Chronic diastolic (congestive ) heart failure Internal Medicine - H&P: HPI Chief complaint: Dyspnea and epistaxis Admitted From: Home Plans for Post Hospital Care: Home History of present illness: Mr. Alarcon is a 80 year old male who came to emergency room stating he had developed epistaxis and increasing dyspnea. He had been discharged from [facility] June 16 following admission June 12 for exacerbation of COPD. He took the antibiotic and probiotics at home as prescribed for 3 days after discharge. His last dose was taken a few hours prior to coming to emergency room last evening. He was evaluated and felt to have exacerbation of COPD and was admitted to [facility] floor for ongoing care needs. He has been hospitalized many times at [facility] in the past few years, most often with exacerbation of COPD. His respiratory history is significant for having smoked from age [age] up to 3 packs per day. He has a diagnosis of COPD/ emphysema and wears oxygen at home 14/10. He had chest CT 08/23/2015 which showed no acute process except for severe emphysema. He states he was diagnosed with sleep apnea several years ago but could not tolerate the CPAP mask. He denies missing any doses of his home medications. He states he has used occasional aspirin for chest pain. He has had epistaxis in the past. Past Med Surg Social Fam HX - Past Medical History Medical history: arthritis, cancer, CHF, COPD, diabetes, hyperlipidemia, hypertension, renal disease Psychiatric history: anxiety, depression, prior suicide attempt - Past Surgical History Surgical History: cataract - Social History Smoking Status: Current some day smoker Smokeless Tobacco Status: No Alcohol use: none Drug use: none, other - Family History Son Adopted: No Family Member Ethnicity: Non- Living Status: Still Living Hx Family Cardiac Disorders: Yes Hx Family Respiratory Disorders: No Hx Family Cancer: Yes (Mother Cancer stomach) Hx Family GI Disorders: No Father Adopted: No Living Status: Hx Family Cardiac Disorders: Yes Hx Family Respiratory Disorders: No Hx Family Cancer: Yes (Mother Cancer stomach) Hx Family GI Disorders: No Mother Living Status: Age at : 78 Cause of : cancer Hx Family Cancer: Yes Internal Medicine - H&P: Meds Albuterol Sulfate [Albuterol Inhaler] 2 puff IH Q4H PRN 365 Days 02/01/16 [Rx] Bumetanide [Bumex] 1 mg PO DAILY tablet 02/01/16 [Rx] Glimepiride [Amaryl] 2 mg PO 0800 tablet 02/01/16 [Rx] Metolazone [Zaroxolyn] 5 mg PO DAILY tablet 02/01/16 [Rx] Montelukast [Singulair] 10 mg PO DAILY tablet 02/01/16 [Rx] Potassium Chloride 10 meq PO DAILY tab.er.prt 02/01/16 [Rx] Tiotropium [Spiriva] 18 mcg IH DAILY inh 02/01/16 [Rx] Cholecalciferol (D-3) [Vitamin D] 2,000 unit PO DAILY #60 tablet 04/05/16 [Rx] PredniSONE 10 mg PO BIDWM #6 tablet 04/05/16 [Rx] Amitriptyline HCl 10 mg PO HS 04/17/16 [History] Roflumilast [Daliresp] 500 mcg PO QAM 04/17/16 [History] Lactobacillus [Culturelle] 1 each PO BID #6 cap.sprink 06/16/16 [Rx] Levofloxacin [Levaquin] 500 mg PO DAILY #3 tablet 06/16/16 [Rx] Allergies niacin Allergy (Verified 06/12/16 13:59) See Comments All Systems PM: A 10-system review of systems was performed and is negative for pertinent findings except as documented above in the HPI. Review of systems: Review of systems from his last visit in May 2016 were reviewed and revised as below. Gen.: His weight January 2015 was 220 pounds. Reported weighed this admission is 93.894 kg. Cardiovascular: His cardiovascular history is significant for having hypertension. He had an echocardiogram done during an [facility] stay 04/2014 that showed LVEF of 65-70% with probable mild diastolic dysfunction. Estimated RVSP was 60 mmHg. He has a history of hypertension and heart failure but no known DVT or pulmonary embolus. He had an exercise stress test approximately 2008. He does not remember details but believes it was done at [facility] and showed no abnormality requiring further intervention. He has significant leg edema and wears Matty wraps at home daily on his lower legs. Respiratory: As per history of present illness GI: He has NAFLD and cholelithiasis without cholecystitis. He has diverticulosis. He has had no disorders documented of his liver gallbladder or exocrine pancreas. He thinks he had EGD and colonoscopy done approximately 2004 at [facility] which were both unremarkable. : He has CKD stage 3-[address] Borden. He had prostate cancer in 1998 was treated with radiation therapy and ongoing Lupron injections. His estimated GFR had risen to greater than 60 at time of discharge 11/21/2015. Neurologic: He denies large distribution strokes or seizures. He has significant hearing loss Endocrine: He was diagnosed with DM 2 approximately 2009. His hemoglobin A1c was 6.0% on 03/12/2016. He has hyperlipidemia but no known thyroid disease. Hematology/oncology: He had anemia workup done February 2016 revealing possible iron deficiency. He is also felt to have anemia secondary to chronic disease. He has required intermittent blood transfusions to maintain satisfactory hemoglobin level. He has no other known internal malignancies other than prostate cancer. Psychiatric: He has depression but no significant anxiety or other mental health issues. He was hospitalized at [facility] March 2016 after a benzodiazepine overdose. He was transferred to [facility] inpatient senior behavioral health service. Musk skeletal: He has DJD and chronic low back pain but no known gout - Constitutional Vitals: Temp Pulse Resp BP Pulse Ox 98.5 F 88 22 107/60 92 L 06/20/16 07:19 06/20/16 07:19 06/20/16 09:12 06/20/16 07:19 06/20/16 09:12 Exam: Gen.: He is a well-developed well-nourished male sitting on the side of the bed who appears slightly dyspneic HEENT: Head is atraumatic, normocephalic. Eyes: EOMI. There is no scleral icterus. Mouth: Mucosa is moist. Neck: Supple and nontender. There is no thyromegaly or adenopathy noted. Heart: Regular without murmurs gallops or ectopics. Tones are soft. Lungs: No wheezes or crackles are heard. He has diminished breath sounds diffusely. Abdomen: Soft and nontender. Exam is limited because he is in the seated position. Extremities: He has elastic wrap on his lower legs and feet bilaterally. I did not remove these. He has 1-2+ pitting edema of the dorsum of the feet noted through the elastic wrap. He has ecchymoses of various stages involving essentially the entire skin of his arms. Neurologic: Mental status: He is talkative and seems to be a fair historian. He is significantly hard of hearing. Cranial nerves: Smile is symmetric. Forehead wrinkles bilaterally. Tongue protrudes midline. EOMI. Motor: There is no pronator drift. Cerebellar: Finger to nose is intact bilaterally. Skin: Warm and dry with ecchymoses as per above Internal Med - H&P Results - Labs CBC & Chem 7: 06/19/16 18:39 06/19/16 18:39 - VTE Reasons for not Prescribing Prophylaxis: Treatment not Indicated - Low risk for VTE Documentation of Mechanical Device: Graduated compression elastic hosiery
[2016-06-20] MEDS: Isosorbide MONOnitrate (24 HR) 30 MG TAB.ER.24H PO SCH (11:55)
[2016-06-20] MEDS: Budesonide/Formoterol 160/4.5 MDI IH SCH ×2 (11:56→20:41)
--- NOTE | 2016-06-20 17:00 | Electrocardiograph Report ---
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
[2016-06-21] MEDS: Albuterol 2.5 MG/3 ML NEBULIZER IH PRN ×3 (02:11→17:15)
[2016-06-21] MEDS ORDERED: Furosemide 20 MG/2 ML VIAL IVP STA (02:24)
[2016-06-21] MEDS ORDERED: *HR* Morphine 2 MG/ML SYRINGE IVP STA (02:25)
[2016-06-21 06:46] LABS: Eosinophils % 0.1 %; Hematocrit 23.3 % (37.5-50.1); Hemoglobin 7.1 g/dL (12.9-16.9); Immature Granulocytes % 1.4 % (0-4); Lymphocytes # 1.4 K/mcL (0.6-4.6); Lymphocytes % 18.6 %; Mean Corpuscular HGB Conc 30.5 g/dL (31.6-35.5); Mean Corpuscular Hemoglobin 29.1 pg (28.0-33.3); Mean Corpuscular Volume 95.5 fL (83.0-100.0); Mean Platelet Volume 8.8 fL (9.4-12.4); Monocytes # 1.1 K/mcL (0.0-1.3); Monocytes % 14.7 %; Platelet Count 227 K/mcL (140-400); Red Blood Count 2.44 M/mcL (4.19-5.50); Red Cell Distribution Width 14.2 % (11.5-14.5); Segmented Neutrophils % 65.2 %
[2016-06-21 07:07] LABS: Albumin 2.6 g/dL (3.5-5.0); Bilirubin,Total 0.2 mg/dL (0.2-1.2); Calcium 8.5 mg/dL (8.6-10.8); Globulin 2.6 g/dL (2.4-3.5); Potassium 3.7 mEq/L (3.5-4.5); Total Protein 5.2 g/dL (6.0-8.3)
[2016-06-21] MEDS ORDERED: *HR* Dextrose 50 % in Water (Syg) 50 ML SYRINGE ONE (07:15)
[2016-06-21] MEDS ORDERED: D5% in Water 1,000 ML IVC PRN (07:34)
[2016-06-21] MEDS ORDERED: Dextrose Gel 15 GM PO PRN ×2 (07:34)
[2016-06-21] MEDS: Bumetanide 1 MG/4 ML VIAL IVP SCH (08:45)
[2016-06-21] MEDS: *HR* Glimepiride 2 MG TABLET PO SCH (08:54)
[2016-06-21] MEDS: *HR* Dextrose 50 % in Water (Syg) 50 ML SYRINGE IVP PRN ×2 (09:43→17:02)
--- NOTE | 2016-06-21 09:53 | Internal Med Progress Note ---
Date of Encounter: 06/21/16 Time of Encounter: 09:40 - Assessment and plan (1) Acute exacerbation of chronic obstructive airways disease Current Visit: Yes Status: Acute Assessment and plan: June 21. Continue present management. WBC remains normal and there is no left shift on the differential. He maintains afebrile. Will not give antibiotics at this time (2) Anemia Current Visit: No Status: Chronic Assessment and plan: Hemoglobin has decreased to 7.1. We will recheck CBC in a.m. Qualifiers: Anemia type: unspecified type Qualified Code(s): D64.9 - Anemia, unspecified (3) CHF (congestive heart failure) Current Visit: Yes Status: Chronic Assessment and plan: June 21. Bn peptide was 49 on admission. Continue present management. Qualifiers: Congestive heart failure type: diastolic Congestive heart failure chronicity: chronic Qualified Code(s): I50.32 - Chronic diastolic (congestive ) heart failure - Subjective Interval history: June 21. He has no new complaints. He has had hypoglycemia in the past few hours. Amaryl was given June 20 but not given today. - Constitutional Vitals: Temp Pulse Resp BP Pulse Ox 98.7 F 91 28 145/54 93 L 06/21/16 07:47 06/21/16 07:47 06/21/16 07:59 06/21/16 07:47 06/21/16 07:59 Exam: He is lying in bed and appears to be resting fairly comfortably. He is wearing oxygen by mask. Heart is regular without murmurs. Lungs show prolonged expiratory phase and mild wheezing. His lower legs are wrapped with elastic wrap but edema appears to be minimal above the top of the wrap. I reviewed his medications and lab results Internal Medicine: Result - Labs CBC & Chem 7: 06/21/16 06:40 06/21/16 06:40 Labs: Short CBC 06/21/16 Range/Units 06:40 WBC 7.7 (4.3-11.1) K/mcL Hgb 7.1 L (12.9-16.9) g/dL Hct 23.3 L (37.5-50.1) % Plt Count 227 (140-400) K/mcL Neutrophils # 5.0 (1.6-8.9) K/mcL BMP 06/21/16 06:40 Sodium 139 Potassium 3.7 Chloride 84 L Carbon Dioxide 43 H* BUN 57 H Creatinine 1.40 H Glucose 36 L* Calcium 8.5 L Liver Function 06/21/16 Range/Units 06:40 Total Bilirubin 0.2 (0.2-1.2) mg/dL AST 49 H (5-34) Units/L ALT 16 (0-55) Units/L Alkaline Phosphatase 32 L (38-126) Units/L Albumin 2.6 L (3.5-5.0) g/dL - ABG Interpretation ABG results: ABG ABG pH 7.38 pH Units (7.32-7.45) 06/19/16 18:49 ABG pCO2 75 mmHg (35-45) H* 06/19/16 18:49 ABG pO2 53 mmHg (85-104) L 06/19/16 18:49 ABG O2 Saturation 84 % (95-98) L 06/19/16 18:49 PT/INR, D-dimer PT 13.1 Seconds (9.4-12.1) H 06/19/16 18:39 - VTE Reasons for not Prescribing Prophylaxis: Treatment not Indicated - Low risk for VTE Documentation of Mechanical Device: Graduated compression elastic hosiery Consult Discharge Plan - Plan Referrals: NO,PCP [Primary Care Provider] - 1 week
[2016-06-21] MEDS: Isosorbide MONOnitrate (24 HR) 30 MG TAB.ER.24H PO SCH (09:59)
[2016-06-21] MEDS: Cholecalciferol (D-3) 1,000 UNIT TABLET PO SCH (10:03)
[2016-06-21] MEDS: (Roflumilast [Daliresp] 500 MCG) PO SCH (10:03)
[2016-06-21] MEDS: Budesonide/Formoterol 160/4.5 MDI IH SCH (10:46)
[2016-06-21] MEDS: Tiotropium 18 MCG inhalation IH SCH (10:46)
[2016-06-21 11:52] LABS: Folate 12.6 ng/mL (7.0-31.4)
[2016-06-21] MEDS ORDERED: Ondansetron 4 MG/2 ML VIAL IV ONE (13:30)
[2016-06-21] MEDS: Ondansetron 4 MG/2 ML VIAL IVP STA (13:36)
[2016-06-22 05:17] LABS: Basophils % 0.1 %; Eosinophils % 0.2 %; Hematocrit 22.7 % (37.5-50.1); Hemoglobin 6.7 g/dL (12.9-16.9); Immature Granulocytes % 0.9 % (0-4); Lymphocytes # 2.1 K/mcL (0.6-4.6); Lymphocytes % 19.5 %; Mean Corpuscular HGB Conc 29.5 g/dL (31.6-35.5); Mean Corpuscular Hemoglobin 28.5 pg (28.0-33.3); Mean Corpuscular Volume 96.6 fL (83.0-100.0); Mean Platelet Volume 8.6 fL (9.4-12.4); Monocytes # 1.4 K/mcL (0.0-1.3); Monocytes % 13.1 %; Neutrophils # 7.2 K/mcL (1.6-8.9); Platelet Count 213 K/mcL (140-400); Red Blood Count 2.35 M/mcL (4.19-5.50); Red Cell Distribution Width 14.6 % (11.5-14.5); Segmented Neutrophils % 66.2 %
[2016-06-22 05:34] LABS: BUN/Creatinine Ratio 35 (6-26); Blood Urea Nitrogen 48 mg/dL (8-26); Calcium 8.7 mg/dL (8.6-10.8); Chloride 83 mEq/L (98-109); Glucose 97 mg/dL (70-99); Osmolality,Calculated 309 (280-300); Potassium 4.1 mEq/L (3.5-4.5); Sodium 143 mEq/L (136-145); eGFR For African Americans > 60 (> 60); eGFR For Non-African Americans 50 (> 60)
[2016-06-22 05:47] LABS: Carbon Dioxide 48 mEq/L (19-29)
[2016-06-22] MEDS ORDERED: Bumetanide 1 MG/4 ML VIAL IVP ONE (06:50)
[2016-06-22] MEDS: *HR* Glimepiride 2 MG TABLET PO SCH (07:33)
[2016-06-22] MEDS: (Roflumilast [Daliresp] 500 MCG) PO SCH (07:33)
[2016-06-22] MEDS: Bumetanide 1 MG/4 ML VIAL IVP SCH (09:47)
[2016-06-22] MEDS ORDERED: CefTRIAXone 1,000 MG in D5% in Water (Mini-Bag+) 100 ML IVPB ONE (10:00)
[2016-06-22] MEDS: Tiotropium 18 MCG inhalation IH SCH (10:01)
[2016-06-22] MEDS: Isosorbide MONOnitrate (24 HR) 30 MG TAB.ER.24H PO SCH (12:36)
[2016-06-22] MEDS: Cholecalciferol (D-3) 1,000 UNIT TABLET PO SCH (12:36)
[2016-06-22] MEDS ORDERED: 0.9 % Sodium Chloride 1,000 ML ONE (13:36)
[2016-06-22] MEDS ORDERED: 0.9 % Sodium Chloride 500 ML IVC ONE (14:00)
[2016-06-22] MEDS ORDERED: 0.9 % Sodium Chloride 1,000 ML IVC SCH (14:15)
--- NOTE | 2016-06-22 14:17 | Internal Med Progress Note ---
Date of Encounter: 06/22/16 Time of Encounter: 13:45 - Assessment and plan (1) Acute exacerbation of chronic obstructive airways disease Current Visit: Yes Status: Acute Assessment and plan: June 21. Continue present management. WBC remains normal and there is no left shift on the differential. He maintains afebrile. Will not give antibiotics at this time June 22. He received a dose of Rocephin earlier today after developing temperature elevation. I confirmed with family that he is a DNR CC/DO NOT INTUBATE and will continue with low dose IV fluids and present pulmonary regimen. I told the family hIs survival may be less than 24 hours. (2) Anemia Current Visit: No Status: Chronic Assessment and plan: June 21. Hemoglobin has decreased to 7.1. We will recheck CBC in a.m. June 22. Hemoglobin has decreased slightly to 6.7. Qualifiers: Anemia type: unspecified type Qualified Code(s): D64.9 - Anemia, unspecified (3) CHF (congestive heart failure) Current Visit: Yes Status: Chronic Assessment and plan: June 21. Bn peptide was 49 on admission. Continue present management. June 22. Continue present management Qualifiers: Congestive heart failure type: diastolic Congestive heart failure chronicity: chronic Qualified Code(s): I50.32 - Chronic diastolic (congestive ) heart failure - Subjective Interval history: June 21. He has no new complaints. He has had hypoglycemia in the past few hours. Amaryl was given June 20 but not given today. June 22. I was called to come the room urgently after he had jerking movements of his arms briefly and became less responsive. - Constitutional Vitals: Temp Pulse Resp BP Pulse Ox 100.2 F H 87 32 103/53 70 06/22/16 07:00 06/22/16 07:00 06/22/16 07:27 06/22/16 07:00 06/22/16 07:27 Exam: He is lying in bed with no significant response to voice or light touch. His gaze is disconjugate and pupils are small. Heart is regular without murmurs gallops or ectopics. Lungs are clear without inspiratory crackles or expiratory wheezing. He has diminished breath sounds diffusely. Extremities show 1+ edema on the dorsum of the feet but no ankle edema. Reviewed his medications and lab results. Internal Medicine: Result - Labs CBC & Chem 7: 06/22/16 05:06 06/22/16 05:06 Labs: Short CBC 06/22/16 Range/Units 05:06 WBC 10.8 (4.3-11.1) K/mcL Hgb 6.7 L (12.9-16.9) g/dL Hct 22.7 L (37.5-50.1) % Plt Count 213 (140-400) K/mcL Neutrophils # 7.2 (1.6-8.9) K/mcL BMP 06/22/16 05:06 Sodium 143 Potassium 4.1 Chloride 83 L Carbon Dioxide 48 H* BUN 48 H Creatinine 1.36 H Glucose 97 Calcium 8.7 - ABG Interpretation ABG results: ABG ABG pH 7.38 pH Units (7.32-7.45) 06/19/16 18:49 ABG pCO2 75 mmHg (35-45) H* 06/19/16 18:49 ABG pO2 53 mmHg (85-104) L 06/19/16 18:49 ABG O2 Saturation 84 % (95-98) L 06/19/16 18:49 PT/INR, D-dimer PT 13.1 Seconds (9.4-12.1) H 06/19/16 18:39 - VTE Reasons for not Prescribing Prophylaxis: Treatment not Indicated - Low risk for VTE Documentation of Mechanical Device: Graduated compression elastic hosiery Consult Discharge Plan - Plan Referrals: NO,PCP [Primary Care Provider] - 1 week
[2016-06-22 14:57] LABS: ABG PH 7.22 pH Units (7.32-7.45)
[2016-06-22 14:58] LABS: ABG Base Excess 15.7 mEq/L (-2.0 to 3.0); ABG HCO3 43.4 mEQ/L (21-27); ABG PCO2 105 mmHg (35-45); ABG PO2 80 mmHg (85-104); ABG TCO2 46.6 mEq/L (20-26)
[2016-06-22 14:59] LABS: ABG Oxygen Saturation 92 % (95-98); Blood Gas BiPAP(E) 8 cm H2O; Blood Gas BiPAP(I) 16 cm H2O; Blood Gas FiO2 50 %; Blood Gas Respiration Rate 12
[2016-06-22] MEDS: *HR* LORazepam 2 MG/ML VIAL IVP PRN (18:10)
--- NOTE | 2016-06-23 08:58 | Internal Med Progress Note ---
Date of Encounter: 06/23/16 Time of Encounter: 08:45 - Assessment and plan (1) Acute exacerbation of chronic obstructive airways disease Current Visit: Yes Status: Acute Assessment and plan: June 21. Continue present management. WBC remains normal and there is no left shift on the differential. He maintains afebrile. Will not give antibiotics at this time June 22. He received a dose of Rocephin earlier today after developing temperature elevation. I confirmed with family that he is a DNR CC/DO NOT INTUBATE and will continue with low dose IV fluids and present pulmonary regimen. I told the family hIs survival may be less than 24 hours. June 2. Will start him on Zosyn and doxycycline since fever spikes continue. Recheck labs in a.m. (2) Anemia Current Visit: No Status: Chronic Assessment and plan: June 21. Hemoglobin has decreased to 7.1. We will recheck CBC in a.m. June 22. Hemoglobin has decreased slightly to 6.7. June 2. Recheck labs in a.m. Qualifiers: Anemia type: unspecified type Qualified Code(s): D64.9 - Anemia, unspecified (3) CHF (congestive heart failure) Current Visit: Yes Status: Chronic Assessment and plan: June 21. Bn peptide was 49 on admission. Continue present management. June 22. Continue present management June 2. Recheck labs in a.m. Qualifiers: Congestive heart failure type: diastolic Congestive heart failure chronicity: chronic Qualified Code(s): I50.32 - Chronic diastolic (congestive ) heart failure - Subjective Interval history: June 21. He has no new complaints. He has had hypoglycemia in the past few hours. Amaryl was given June 20 but not given today. June 22. I was called to come the room urgently after he had jerking movements of his arms briefly and became less responsive. June 23. No new problems have occurred since yesterday. - Constitutional Vitals: Temp Pulse Resp BP Pulse Ox 100.0 F H 112 23 85/54 93 06/22/16 18:23 06/22/16 18:23 06/23/16 04:24 06/22/16 18:23 06/23/16 04:24 Exam: He is lying in bed but has his eyes open and attempts to talk at times though wearing a BiPAP mask. Heart tones are soft. Lungs show no expiratory wheezing. Extremities show decreased edema. I reviewed his vital signs, medications, and lab results Internal Medicine: Result - Labs CBC & Chem 7: 06/22/16 05:06 06/22/16 05:06 - ABG Interpretation ABG results: ABG ABG pH 7.22 pH Units (7.32-7.45) L 06/22/16 14:53 ABG pCO2 105 mmHg (35-45) H* 06/22/16 14:53 ABG pO2 80 mmHg (85-104) L 06/22/16 14:53 ABG O2 Saturation 92 % (95-98) L 06/22/16 14:53 PT/INR, D-dimer PT 13.1 Seconds (9.4-12.1) H 06/19/16 18:39 - VTE Reasons for not Prescribing Prophylaxis: Treatment not Indicated - Low risk for VTE Documentation of Mechanical Device: Graduated compression elastic hosiery Consult Discharge Plan - Plan Referrals: NO,PCP [Primary Care Provider] - 1 week
[2016-06-23] MEDS: Cholecalciferol (D-3) 1,000 UNIT TABLET PO SCH (11:31)
[2016-06-23] MEDS: Isosorbide MONOnitrate (24 HR) 30 MG TAB.ER.24H PO SCH (11:31)
[2016-06-23] MEDS: (Roflumilast [Daliresp] 500 MCG) PO SCH (11:31)
[2016-06-23] MEDS: Bumetanide 1 MG/4 ML VIAL IVP SCH (11:33)
[2016-06-23] MEDS: *HR* Glimepiride 2 MG TABLET PO SCH (11:33)
[2016-06-23] MEDS: Piperacillin/Tazobactam 3.375 GM in D5% in Water (Mini-Bag+) 100 ML IVPB SCH ×2 (11:35→17:47)
[2016-06-23] MEDS: *HR* Morphine 2 MG/ML SYRINGE IVP PRN (12:20)
[2016-06-23] MEDS: Tiotropium 18 MCG inhalation IH SCH (12:27)
[2016-06-23] MEDS: Doxycycline 100 MG in 0.9 % Sodium Chloride Mini Bag 100 ML IVPB SCH (15:56)
[2016-06-23] MEDS: *HR* LORazepam 2 MG/ML VIAL IVP PRN (17:38)
[2016-06-24] MEDS: Piperacillin/Tazobactam 3.375 GM in D5% in Water (Mini-Bag+) 100 ML IVPB SCH ×3 (02:09→20:50)
[2016-06-24 06:30] LABS: Basophils % 0.2 %; Eosinophils # 0.2 K/mcL (0.0-0.6); Eosinophils % 1.3 %; Hematocrit 22.2 % (37.5-50.1); Hemoglobin 6.7 g/dL (12.9-16.9); Immature Granulocytes % 1.2 % (0-4); Lymphocytes # 1.2 K/mcL (0.6-4.6); Lymphocytes % 7.5 %; Mean Corpuscular HGB Conc 30.2 g/dL (31.6-35.5); Mean Corpuscular Hemoglobin 29.3 pg (28.0-33.3); Mean Corpuscular Volume 96.9 fL (83.0-100.0); Monocytes # 1.1 K/mcL (0.0-1.3); Monocytes % 6.9 %; Neutrophils # 13.1 K/mcL (1.6-8.9); Platelet Count 278 K/mcL (140-400); Red Blood Count 2.29 M/mcL (4.19-5.50); Red Cell Distribution Width 15.2 % (11.5-14.5); Segmented Neutrophils % 82.9 %
[2016-06-24] MEDS: Doxycycline 100 MG in 0.9 % Sodium Chloride Mini Bag 100 ML IVPB SCH ×2 (06:46→16:59)
[2016-06-24 06:47] LABS: Albumin/Globulin Ratio 0.6 (1.1-2.2); Bilirubin,Total 0.4 mg/dL (0.2-1.2); Calcium 8.7 mg/dL (8.6-10.8); Globulin 3.1 g/dL (2.4-3.5); Potassium 3.9 mEq/L (3.5-4.5); Total Protein 5.1 g/dL (6.0-8.3)
[2016-06-24 08:03] LABS: ABG PH 7.33 pH Units (7.32-7.45)
[2016-06-24 08:04] LABS: ABG Base Excess 22.8 mEq/L (-2.0 to 3.0); ABG HCO3 48.7 mEQ/L (21-27); ABG Oxygen Saturation 96 % (95-98); ABG PCO2 92 mmHg (35-45); ABG PO2 92 mmHg (85-104); ABG TCO2 51.6 mEq/L (20-26); Blood Gas FiO2 50 %; Blood Gas Respiration Rate 30
[2016-06-24 08:05] LABS: Blood Gas BiPAP(E) 8 cm H2O; Blood Gas BiPAP(I) 16 cm H2O; Blood Gas VT 433 cc
[2016-06-24] MEDS: Isosorbide MONOnitrate (24 HR) 30 MG TAB.ER.24H PO SCH (09:08)
[2016-06-24] MEDS: (Roflumilast [Daliresp] 500 MCG) PO SCH (09:08)
[2016-06-24] MEDS: Cholecalciferol (D-3) 1,000 UNIT TABLET PO SCH (09:08)
--- NOTE | 2016-06-24 10:09 | Internal Med Progress Note ---
Date of Encounter: 06/24/16 Time of Encounter: 09:55 - Assessment and plan (1) Acute exacerbation of chronic obstructive airways disease Current Visit: Yes Status: Acute Assessment and plan: June 21. Continue present management. WBC remains normal and there is no left shift on the differential. He maintains afebrile. Will not give antibiotics at this time June 22. He received a dose of Rocephin earlier today after developing temperature elevation. I confirmed with family that he is a DNR CC/DO NOT INTUBATE and will continue with low dose IV fluids and present pulmonary regimen. I told the family hIs survival may be less than 24 hours. June 2. Will start him on Zosyn and doxycycline since fever spikes continue. Recheck labs in a.m. June 24. Continue antibiotics with lactobacillus. Suspect viral infection present (2) Anemia Current Visit: No Status: Chronic Assessment and plan: June 21. Hemoglobin has decreased to 7.1. We will recheck CBC in a.m. June 22. Hemoglobin has decreased slightly to 6.7. June 2. Recheck labs in a.m. June 24. Hemoglobin remains 6.7. We will give 1 unit packed red blood cells today. Check labs in a.m. Qualifiers: Anemia type: unspecified type Qualified Code(s): D64.9 - Anemia, unspecified (3) CHF (congestive heart failure) Current Visit: Yes Status: Chronic Assessment and plan: June 21. Bn peptide was 49 on admission. Continue present management. June 22. Continue present management June 2. Recheck labs in a.m. June 24. Continue present regimen Qualifiers: Congestive heart failure type: diastolic Congestive heart failure chronicity: chronic Qualified Code(s): I50.32 - Chronic diastolic (congestive ) heart failure (4) CKD (chronic kidney disease) stage 3, GFR 30-59 ml/min Current Visit: No Status: Chronic Assessment and plan: June 24. Will increase IV fluids and recheck labs in a.m. - Subjective Interval history: June 21. He has no new complaints. He has had hypoglycemia in the past few hours. Amaryl was given June 20 but not given today. June 22. I was called to come the room urgently after he had jerking movements of his arms briefly and became less responsive. June 2. No new problems have occurred since yesterday. June 24. He has no new complaints. - Constitutional Vitals: Temp Pulse Resp BP Pulse Ox 100.2 F H 96 22 93/55 98 06/24/16 08:00 06/24/16 08:00 06/24/16 08:00 06/24/16 08:00 06/24/16 08:00 Exam: He is slightly more responsive and opens his eyes to sternal rub and loud talking. Heart tones are very soft. Lungs show no wheezes or crackles. He has minimal edema of the dorsum of the feet now. I reviewed his medications and lab results. Internal Medicine: Result - Labs CBC & Chem 7: 06/24/16 06:00 06/24/16 06:00 Labs: Short CBC 06/24/16 Range/Units 06:00 WBC 15.8 H (4.3-11.1) K/mcL Hgb 6.7 L (12.9-16.9) g/dL Hct 22.2 L (37.5-50.1) % Plt Count 278 (140-400) K/mcL Neutrophils # 13.1 H (1.6-8.9) K/mcL BMP 06/24/16 06:00 Sodium 145 Potassium 3.9 Chloride 86 L Carbon Dioxide 42 H* BUN 68 H D Creatinine 2.12 H D Glucose 133 H Calcium 8.7 Liver Function 06/24/16 Range/Units 06:00 Total Bilirubin 0.4 (0.2-1.2) mg/dL AST 26 (5-34) Units/L ALT 16 (0-55) Units/L Alkaline Phosphatase 32 L (38-126) Units/L Albumin 2.0 L D (3.5-5.0) g/dL - ABG Interpretation ABG results: ABG ABG pH 7.33 pH Units (7.32-7.45) 06/24/16 08:00 ABG pCO2 92 mmHg (35-45) H* 06/24/16 08:00 ABG pO2 92 mmHg (85-104) 06/24/16 08:00 ABG O2 Saturation 96 % (95-98) 06/24/16 08:00 PT/INR, D-dimer PT 13.1 Seconds (9.4-12.1) H 06/19/16 18:39 - VTE Reasons for not Prescribing Prophylaxis: Treatment not Indicated - Low risk for VTE Documentation of Mechanical Device: Graduated compression elastic hosiery Consult Discharge Plan - Plan Referrals: NO,PCP [Primary Care Provider] - 1 week
[2016-06-24] MEDS ORDERED: Water for inj. (sterile) 10 ML IV ONE (10:21)
[2016-06-24] MEDS: *HR* LORazepam 2 MG/ML VIAL IVP PRN (10:24)
[2016-06-24] MEDS: Tiotropium 18 MCG inhalation IH SCH (11:18)
[2016-06-24] MEDS ORDERED: 0.9 % Sodium Chloride 250 ML ONE (12:45)
[2016-06-24] MEDS ORDERED: Piperacillin/Tazobactam 3.375 GM in D5% in Water (Mini-Bag+) 100 ML IVPB SCH (14:30)
[2016-06-24] MEDS ORDERED: *HR* Propranolol 1 MG/ML VIAL IVP ONE (23:07)
[2016-06-24] MEDS ORDERED: *HR* Digoxin 0.5 MG/2 ML AMPUL IVP ONE (23:09)
[2016-06-24] MEDS ORDERED: *HR* Digoxin 0.5 MG/2 ML AMPUL ONE (23:20)
[2016-06-25] MEDS: Doxycycline 100 MG in 0.9 % Sodium Chloride Mini Bag 100 ML IVPB SCH (03:24)
[2016-06-25 06:03] LABS: Basophils # 0.1 K/mcL (0.0-0.2); Basophils % 0.3 %; Eosinophils # 0.2 K/mcL (0.0-0.6); Hematocrit 28.7 % (37.5-50.1); Hemoglobin 8.1 g/dL (12.9-16.9); Lymphocytes # 1.6 K/mcL (0.6-4.6); Lymphocytes % 9.4 %; Mean Corpuscular HGB Conc 28.2 g/dL (31.6-35.5); Mean Corpuscular Hemoglobin 28.4 pg (28.0-33.3); Mean Corpuscular Volume 100.7 fL (83.0-100.0); Mean Platelet Volume 9.1 fL (9.4-12.4); Monocytes # 1.9 K/mcL (0.0-1.3); Monocytes % 10.8 %; Neutrophils # 13.3 K/mcL (1.6-8.9); Nucleated Red Blood Cells 0.2 /100 WBC (0); Platelet Count 327 K/mcL (140-400); Red Blood Count 2.85 M/mcL (4.19-5.50); Red Cell Distribution Width 15.3 % (11.5-14.5); Segmented Neutrophils % 76.5 %
[2016-06-25 06:18] LABS: Calcium 8.7 mg/dL (8.6-10.8); Potassium 4.5 mEq/L (3.5-4.5)
[2016-06-25] MEDS: *HR* Enoxaparin 30 MG/0.3 ML SYRINGE SQ SCH ×2 (06:22→21:54)
[2016-06-25] MEDS: Cholecalciferol (D-3) 1,000 UNIT TABLET PO SCH (07:19)
[2016-06-25] MEDS: (Roflumilast [Daliresp] 500 MCG) PO SCH (07:19)
[2016-06-25] MEDS: Isosorbide MONOnitrate (24 HR) 30 MG TAB.ER.24H PO SCH (07:19)
[2016-06-25] MEDS: Tiotropium 18 MCG inhalation IH SCH (07:20)
[2016-06-25] MEDS: Piperacillin/Tazobactam 3.375 GM in D5% in Water (Mini-Bag+) 100 ML IVPB SCH ×2 (08:04→21:58)
[2016-06-25 09:04] LABS: Anisocytosis 1+ (Not Present); Hypochromasia Present (Not Present); Platelet Estimate Normal (Normal); Polychromasia 1+ (Not Present)
--- NOTE | 2016-06-25 10:13 | Internal Med Progress Note ---
Date of Encounter: 06/25/16 Time of Encounter: 09:55 - Assessment and plan (1) Acute exacerbation of chronic obstructive airways disease Current Visit: Yes Status: Acute Assessment and plan: June 21. Continue present management. WBC remains normal and there is no left shift on the differential. He maintains afebrile. Will not give antibiotics at this time June 22. He received a dose of Rocephin earlier today after developing temperature elevation. I confirmed with family that he is a DNR CC/DO NOT INTUBATE and will continue with low dose IV fluids and present pulmonary regimen. I told the family hIs survival may be less than 24 hours. June 2. Will start him on Zosyn and doxycycline since fever spikes continue. Recheck labs in a.m. June 24. Continue antibiotics with lactobacillus. Suspect viral infection present June 25. Chest x-ray showed right lower lobe infiltrate. Continue Zosyn. Will change to IV vancomycin in place of doxycycline and add IV Septra also. Check pro calcitonin and viral respiratory panel also. (2) Anemia Current Visit: No Status: Chronic Assessment and plan: June 21. Hemoglobin has decreased to 7.1. We will recheck CBC in a.m. June 22. Hemoglobin has decreased slightly to 6.7. June 2. Recheck labs in a.m. June 24. Hemoglobin remains 6.7. We will give 1 unit packed red blood cells today. Check labs in a.m. June 25. Hemoglobin improved to 8.1. Continue to monitor. Qualifiers: Anemia type: unspecified type Qualified Code(s): D64.9 - Anemia, unspecified (3) CHF (congestive heart failure) Current Visit: Yes Status: Chronic Assessment and plan: June 21. Bn peptide was 49 on admission. Continue present management. June 22. Continue present management June 2. Recheck labs in a.m. June 24. Continue present regimen Qualifiers: Congestive heart failure type: diastolic Congestive heart failure chronicity: chronic Qualified Code(s): I50.32 - Chronic diastolic (congestive ) heart failure (4) CKD (chronic kidney disease) stage 3, GFR 30-59 ml/min Current Visit: No Status: Chronic Assessment and plan: June 24. Will increase IV fluids and recheck labs in a.m. June 25. Creatinine slightly improved at 2.04 with estimated GFR 32. Continue IV fluids and recheck labs in a.m. - Subjective Interval history: June 21. He has no new complaints. He has had hypoglycemia in the past few hours. Amaryl was given June 20 but not given today. June 22. I was called to come the room urgently after he had jerking movements of his arms briefly and became less responsive. June 23. No new problems have occurred since yesterday. June 24. He has no new complaints. June 25. He has no complaints and is nonverbal. He developed AF with RVR last evening and received Lanoxin and Inderal IV. - Constitutional Vitals: Temp Pulse Resp BP Pulse Ox 102.8 F H 130 23 148/66 98 06/25/16 07:12 06/25/16 07:12 06/25/16 07:12 06/25/16 07:12 06/25/16 07:12 Exam: He is lying in bed and is unresponsive to voice and light touch. His heart is irregularly irregular with rate approximately 130/m. Abdomen is soft and nontender. Extremities show trace pitting edema of the dorsum of the feet and lower anterior shins. He does not move spontaneously. Lungs showed no wheezes or crackles or rhonchi. I reviewed his medications, lab results, and chest x- ray report. Internal Medicine: Result - Labs CBC & Chem 7: 06/25/16 05:00 06/25/16 05:00 Labs: Short CBC 06/25/16 Range/Units 05:00 WBC 17.4 H (4.3-11.1) K/mcL Hgb 8.1 L (12.9-16.9) g/dL Hct 28.7 L (37.5-50.1) % Plt Count 327 (140-400) K/mcL Neutrophils # 13.3 H (1.6-8.9) K/mcL BMP 06/25/16 05:00 Sodium 147 H Potassium 4.5 Chloride 90 L Carbon Dioxide 41 H* BUN 68 H Creatinine 2.04 H Glucose 140 H Calcium 8.7 - ABG Interpretation ABG results: ABG ABG pH 7.33 pH Units (7.32-7.45) 06/24/16 08:00 ABG pCO2 92 mmHg (35-45) H* 06/24/16 08:00 ABG pO2 92 mmHg (85-104) 06/24/16 08:00 ABG O2 Saturation 96 % (95-98) 06/24/16 08:00 PT/INR, D-dimer PT 13.1 Seconds (9.4-12.1) H 06/19/16 18:39 - Impressions Impressions Chest X-Ray 06/25/16 06:00 IMPRESSION: 1. Limited exam. 2. Persistent enlargement of the cardiac silhouette. 3. Opacification seen at the right lung base. 4. Mild prominence of the pulmonary vasculature with likely right pleural effusion. D/ / Willis Mullen MD / Willis Mullen MD Interpreting Provider: Willis Mullen MD - VTE Reasons for not Prescribing Prophylaxis: Treatment not Indicated - Low risk for VTE Documentation of Mechanical Device: Graduated compression elastic hosiery Consult Discharge Plan - Plan Referrals: NO,PCP [Primary Care Provider] - 1 week
[2016-06-25] MEDS ORDERED: *HR* Propranolol 1 MG/ML VIAL IVP ONE (10:20)
[2016-06-25] MEDS ORDERED: *HR* Digoxin 0.5 MG/2 ML AMPUL IVP ONE (10:20)
[2016-06-25] MEDS ORDERED: Vancomycin 1,250 MG in D5% in Water 250 ML IVPB SCH (11:00)
[2016-06-25] MEDS ORDERED: Aminoglycoside Consult 1 EACH MC ONE (11:00)
[2016-06-25] MEDS ORDERED: Vancomycin 1,250 MG in D5% in Water 250 ML IVPB ONE (11:00)
[2016-06-25] MEDS: Acetaminophen IV 1,000 MG/100 ML INFUS..BTL IVPB SCH ×3 (11:51→23:07)
[2016-06-25] MEDS: WATER IVPB SCH (13:10)
[2016-06-25] MEDS: SULFAMETHOXAZOLE IVPB SCH (13:10)
[2016-06-25] MEDS: TRIMETH IVPB SCH (13:10)
[2016-06-25] MEDS: D5 IVPB SCH (13:10)
[2016-06-25] MEDS: *HR* Morphine 2 MG/ML SYRINGE IVP PRN ×2 (13:19→23:02)
[2016-06-26] MEDS: TRIMETH IVPB SCH ×2 (02:20→15:53)
[2016-06-26] MEDS: SULFAMETHOXAZOLE IVPB SCH ×2 (02:20→15:53)
[2016-06-26] MEDS: WATER IVPB SCH ×2 (02:20→15:53)
[2016-06-26] MEDS: D5 IVPB SCH ×2 (02:20→15:53)
[2016-06-26] MEDS: Acetaminophen IV 1,000 MG/100 ML INFUS..BTL IVPB SCH ×3 (04:44→18:10)
[2016-06-26] MEDS: *HR* Enoxaparin 30 MG/0.3 ML SYRINGE SQ SCH (04:50)
[2016-06-26 06:46] LABS: Basophils % 0.2 %; Eosinophils # 0.2 K/mcL (0.0-0.6); Hematocrit 24.8 % (37.5-50.1); Hemoglobin 7.1 g/dL (12.9-16.9); Immature Granulocytes % 2.6 % (0-4); Lymphocytes # 1.6 K/mcL (0.6-4.6); Lymphocytes % 8.4 %; Mean Corpuscular HGB Conc 28.6 g/dL (31.6-35.5); Mean Corpuscular Hemoglobin 28.6 pg (28.0-33.3); Mean Platelet Volume 9.2 fL (9.4-12.4); Monocytes # 2.1 K/mcL (0.0-1.3); Monocytes % 10.9 %; Neutrophils # 14.8 K/mcL (1.6-8.9); Nucleated Red Blood Cells 0.5 /100 WBC (0); Platelet Count 292 K/mcL (140-400); Red Blood Count 2.48 M/mcL (4.19-5.50); Red Cell Distribution Width 14.9 % (11.5-14.5); Segmented Neutrophils % 76.9 %
[2016-06-26 07:03] LABS: Potassium 4.5 mEq/L (3.5-4.5)
[2016-06-26 07:24] LABS: Anisocytosis 1+ (Not Present); Hypochromasia Present (Not Present); Platelet Estimate Normal (Normal); Polychromasia 1+ (Not Present)
[2016-06-26 07:59] LABS: ABG Base Excess 16.7 mEq/L (-2.0 to 3.0); ABG HCO3 44.8 mEQ/L (21-27); ABG Oxygen Saturation 78 % (95-98); ABG PCO2 116 mmHg (35-45); ABG PO2 56 mmHg (85-104); ABG TCO2 48.4 mEq/L (20-26)
[2016-06-26 08:00] LABS: Blood Gas BiPAP(E) 8 cm H2O; Blood Gas BiPAP(I) 16 cm H2O; Blood Gas FiO2 70 %; Blood Gas Respiration Rate 12
[2016-06-26] MEDS: Isosorbide MONOnitrate (24 HR) 30 MG TAB.ER.24H PO SCH (10:41)
[2016-06-26] MEDS: Cholecalciferol (D-3) 1,000 UNIT TABLET PO SCH (10:41)
[2016-06-26] MEDS: (Roflumilast [Daliresp] 500 MCG) PO SCH (10:41)
[2016-06-26] MEDS: Tiotropium 18 MCG inhalation IH SCH (11:02)
[2016-06-26] MEDS: Piperacillin/Tazobactam 3.375 GM in D5% in Water (Mini-Bag+) 100 ML IVPB SCH (13:23)
[2016-06-26] MEDS: *HR* Morphine 2 MG/ML SYRINGE IVP PRN ×5 (13:57→22:16)
--- NOTE | 2016-06-26 15:14 | Internal Med Progress Note ---
Date of Encounter: 06/26/16 Time of Encounter: 09:30 - Assessment and plan (1) Acute exacerbation of chronic obstructive airways disease Current Visit: Yes Status: Acute Assessment and plan: June 21. Continue present management. WBC remains normal and there is no left shift on the differential. He maintains afebrile. Will not give antibiotics at this time June 22. He received a dose of Rocephin earlier today after developing temperature elevation. I confirmed with family that he is a DNR CC/DO NOT INTUBATE and will continue with low dose IV fluids and present pulmonary regimen. I told the family hIs survival may be less than 24 hours. June 2. Will start him on Zosyn and doxycycline since fever spikes continue. Recheck labs in a.m. June 3. Continue antibiotics with lactobacillus. Suspect viral infection present June 25. Chest x-ray showed right lower lobe infiltrate. Continue Zosyn. Will change to IV vancomycin in place of doxycycline and add IV Septra also. Check pro calcitonin and viral respiratory panel also. June 26. Leukocytosis continues to worsen with left shift present. Family requested withdrawal of antibiotics (2) Anemia Current Visit: No Status: Chronic Assessment and plan: June 21. Hemoglobin has decreased to 7.1. We will recheck CBC in a.m. June 22. Hemoglobin has decreased slightly to 6.7. June 2. Recheck labs in a.m. June 3. Hemoglobin remains 6.7. We will give 1 unit packed red blood cells today. Check labs in a.m. June 25. Hemoglobin improved to 8.1. Continue to monitor. June 26. Hemoglobin is decreased to 7.1. Will not do further workup or treatment as family has requested comfort measures at this time. Qualifiers: Anemia type: unspecified type Qualified Code(s): D64.9 - Anemia, unspecified (3) CHF (congestive heart failure) Current Visit: Yes Status: Chronic Assessment and plan: June 21. Bn peptide was 49 on admission. Continue present management. June 22. Continue present management June 2. Recheck labs in a.m. June 3. Continue present regimen June 5. Will continue to withhold further intervention. Qualifiers: Congestive heart failure type: diastolic Congestive heart failure chronicity: chronic Qualified Code(s): I50.32 - Chronic diastolic (congestive ) heart failure (4) CKD (chronic kidney disease) stage 3, GFR 30-59 ml/min Current Visit: No Status: Chronic Assessment and plan: June 24. Will increase IV fluids and recheck labs in a.m. June 25. Creatinine slightly improved at 2.04 with estimated GFR 32. Continue IV fluids and recheck labs in a.m. June 26. Azotemia has worsened with creatinine 3.34 and estimated GFR of 18. Comfort measures only at this point along with BiPAP - Subjective Interval history: June 21. He has no new complaints. He has had hypoglycemia in the past few hours. Amaryl was given June 20 but not given today. June 22. I was called to come the room urgently after he had jerking movements of his arms briefly and became less responsive. June 23. No new problems have occurred since yesterday. June 24. He has no new complaints. June 25. He has no complaints and is nonverbal. He developed AF with RVR last evening and received Lanoxin and Inderal IV. June 26. He remains nonverbal. - Constitutional Vitals: Temp Pulse Resp BP Pulse Ox 100.9 F H 107 34 82/44 86 06/26/16 11:00 06/26/16 11:00 06/26/16 11:00 06/26/16 11:00 06/26/16 11:00 Exam: He does not respond to voice or light touch. Heart tones are soft but appears to be regular. No wheezing is heard. Extremities show unchanged edema. I reviewed his worsening labs with his family. Reviewed his medications. Internal Medicine: Result - Labs CBC & Chem 7: 06/26/16 05:58 06/26/16 05:58 Labs: Short CBC 06/26/16 Range/Units 05:58 WBC 19.3 H (4.3-11.1) K/mcL Hgb 7.1 L (12.9-16.9) g/dL Hct 24.8 L (37.5-50.1) % Plt Count 292 (140-400) K/mcL Neutrophils # 14.8 H (1.6-8.9) K/mcL BMP 06/26/16 05:58 Sodium 139 D Potassium 4.5 Chloride 87 L Carbon Dioxide 38 H BUN 75 H Creatinine 3.34 H D Glucose 183 H Calcium 8.0 L - ABG Interpretation ABG results: ABG ABG pH 7.20 pH Units (7.32-7.45) L* 06/26/16 07:48 ABG pCO2 116 mmHg (35-45) H* 06/26/16 07:48 ABG pO2 56 mmHg (85-104) L 06/26/16 07:48 ABG O2 Saturation 78 % (95-98) L 06/26/16 07:48 PT/INR, D-dimer PT 13.1 Seconds (9.4-12.1) H 06/19/16 18:39 - VTE Reasons for not Prescribing Prophylaxis: Treatment not Indicated - Low risk for VTE Documentation of Mechanical Device: Graduated compression elastic hosiery Consult Discharge Plan - Plan Referrals: NO,PCP [Primary Care Provider] - 1 week
[2016-06-26 19:15] VITALS: BP 106/62
[2016-06-26] MEDS ORDERED: Ketorolac 30 MG/ML VIAL IVP ONE (19:24)
--- NOTE | 2016-06-27 20:46 | Discharge Summary ---
Date of Encounter: 06/27/16 Time of Encounter: 20:40 - Discharge Diagnosis (1) Acute exacerbation of chronic obstructive airways disease Priority: Primary Status: Acute (2) Anemia Priority: Secondary Status: Chronic Qualifiers: Anemia type: unspecified type Qualified Code(s): D64.9 - Anemia, unspecified (3) CHF (congestive heart failure) Priority: Secondary Status: Chronic Qualifiers: Congestive heart failure type: diastolic Congestive heart failure chronicity: chronic Qualified Code(s): I50.32 - Chronic diastolic (congestive ) heart failure (4) CKD (chronic kidney disease) stage 3, GFR 30-59 ml/min Priority: Secondary Status: Chronic - Discharge Medications Home Medications: Albuterol Sulfate [Albuterol Inhaler] 2 puff IH Q4H PRN 365 Days 02/01/16 [Rx] Bumetanide [Bumex] 1 mg PO DAILY tablet 02/01/16 [Rx] Glimepiride [Amaryl] 2 mg PO 0800 tablet 02/01/16 [Rx] Metolazone [Zaroxolyn] 5 mg PO DAILY tablet 02/01/16 [Rx] Montelukast [Singulair] 10 mg PO DAILY tablet 02/01/16 [Rx] Potassium Chloride 10 meq PO DAILY tab.er.prt 02/01/16 [Rx] Tiotropium [Spiriva] 18 mcg IH DAILY inh 02/01/16 [Rx] Cholecalciferol (D-3) [Vitamin D] 2,000 unit PO DAILY #60 tablet 04/05/16 [Rx] PredniSONE 10 mg PO BIDWM #6 tablet 04/05/16 [Rx] Amitriptyline HCl 10 mg PO HS 04/17/16 [History] Roflumilast [Daliresp] 500 mcg PO QAM 04/17/16 [History] Lactobacillus [Culturelle] 1 each PO BID #6 cap.sprink 06/16/16 [Rx] Levofloxacin [Levaquin] 500 mg PO DAILY #3 tablet 06/16/16 [Rx] Allergies/Adverse Reactions: Allergies niacin Allergy (Verified 06/12/16 13:59) See Comments Date of admission: 06/24/16 10:17 Primary care physician: Juan Carlos Gutiérrez M.D. - Patient Status Disposition: Condition: Undetermined - Discharge Instructions Hospital course: Mr. Alarcon is a 80 year old male who came to emergency room stating he had developed epistaxis and increasing dyspnea. He had been discharged from [facility] June 16 following admission June 12 for exacerbation of COPD. He took the antibiotic and probiotics at home as prescribed for 3 days after discharge. His last dose was taken a few hours prior to coming to emergency room last evening. He was evaluated and felt to have exacerbation of COPD and was admitted to [facility] floor for ongoing care needs. Initial orders were written by the emergency room physician. I saw him on June 20 and performed the history and physical. He was started on Rocephin June 22 after developing temperature elevation. He continued on IV Zosyn and doxycycline until June 25 when IV vancomycin replaced doxycycline. IV Septra was also added. He had no significant clinical response and on June 26 the family requested withdrawal of antibiotics and aggressive care. Azotemia worsened with creatinine rising to 3.34 on June 26. He was maintained on BiPAP for most of hospitalization. He had worsening respiratory status and family requested BiPAP be removed the late afternoon of June 26. This was done in accordance with their request. He had gradual decline and was found without pulse or respirations at 2301 on June 26. He was pronounced . No resuscitative efforts were done as per advanced directives. - Time Spent with Patient Total time spent providing and/or coordinating discharge services: - Constitutional Vitals: Temp Pulse Resp BP Pulse Ox 103.0 F H 87 32 106/62 85 06/26/16 21:16 06/26/16 19:00 06/26/16 19:00 06/26/16 19:00 06/26/16 19:00 - VTE Reasons for not Prescribing Prophylaxis: Treatment not Indicated - Low risk for VTE Documentation of Mechanical Device: Graduated compression elastic hosiery
[2016-07-01 07:56] LABS: Influenza A PCR Body Fluid NOT DETECTED; Influenza B PCR Body Fluid NOT DETECTED; RSV PCR Body Fluid NOT DETECTED
== END 2016-06-27 01:40 | disposition expired | DRG 191 ==
LOC: EMEROOPIK 18:04 → INPPIK 18:04
PROVIDERS: ADMIT Internal Medicine; ATTEND Internal Medicine